=== PATIENT | female | born 1945 | race Caucasian/White ===

== ENCOUNTER → 2019-03-19 | Outpatient (REF) | payer MEDICARE, OTHER ==
[~2019-03-19] MED LIST: ASPI81CH49 PO; AZO PO; BIOT1CAP2 PO; CIPR-249 PO; CRAN250T PO; GARL10004 PO; VITA-122 PO; VITA10006 PO; [UNRECOGNIZED DRUG - REMARK] PO
[2019-03-19 14:27] LABS: APPEARANCE, URINE CLEAR (CLEAR); BACTERIA, URINE AUTO NEGATIVE (NEGATIVE); BILIRUBIN, URINE AUTO NEGATIVE (NEGATIVE); BLOOD, URINE BLOOD NEGATIVE (NEGATIVE); COLOR, URINE YELLOW (YELLOW); GLUCOSE, URINE (UA) AUTO NEGATIVE (NEGATIVE); KETONE, URINE AUTO NEGATIVE (NEGATIVE); LEUKOCYTE ESTERASE, URINE AUTO TRACE (NEGATIVE); NITRITE, URINE AUTO NEGATIVE (NEGATIVE); PROTEIN, URINE AUTO NEGATIVE (NEGATIVE); RBC, URINE AUTO 1 /HPF (0-3); SPECIFIC GRAVITY URINE AUTO 1.016 (1.002-1.035); SQUAMOUS EPITHELIAL CELL UR AU 1 /HPF (0-6); UROBILINOGEN, URINE AUTO 0.2 mg/dL (0.0-2.0); WBC, URINE AUTO 2 /HPF (0-3)
== END ==
LOC: M SMT 13:33
PROVIDERS: ATTEND Nurse Practitioner Women's Health
DX: Z87.440 Personal history of urinary (tract) infections (principal); R32 Unspecified urinary incontinence
CPT/HCPCS: 51798; 81001; 87086; G0463

== ENCOUNTER 2020-03-24 08:37 | Outpatient (CLI) | payer MEDICARE ==
[~2020-03-24] VITALS: Ht 157.5 cm; Wt 77.2 kg
[2020-03-24] MEDS ORDERED: FOLI1TAB11 PO (08:52)
[2020-03-24] MEDS ORDERED: MYRB50TA PO (08:52)
[2020-03-24] MEDS ORDERED: LOSA100T5 PO (08:52)
[2020-03-24] MEDS ORDERED: MELO15TA28 PO (08:52)
[2020-03-24] MEDS ORDERED: PRED10TA2 PO (08:52)
[2020-03-24] MEDS ORDERED: METH2.5T48 PO (08:52)
[2020-03-24] MEDS ORDERED: INDA25TAB PO (08:52)
[2020-03-24] MEDS ORDERED: CITR1CHW PO (08:54)
[2020-03-24] MEDS ORDERED: [UNRECOGNIZED DRUG - CODE] PO (08:54)
[2020-03-24 08:57] VITALS: BP 118/59
[2020-03-24] MEDS ORDERED: ZOLEDRONIC ACID 5 MG in IV 1 EA IV ONE (09:00)
[2020-03-24 09:34] VITALS: BP 118/57
== END 2020-03-24 09:55 | disposition home or self-care (01) ==
LOC: M INFU 08:37
PROVIDERS: ATTEND Internal Medicine Endocrinology, Diabetes & Metabolism
DX: M81.0 Age-related osteoporosis without current pathological fracture (principal)
CPT/HCPCS: 96365; J3489

== ENCOUNTER 2021-02-23 09:33 | Inpatient (IN) | payer MEDICARE ==
[~2021-02-23] VITALS: Ht 154.9 cm; Wt 78.9 kg
[~2021-02-23 09:33] MED LIST changes: +CITR1CHW PO; +FOLI1TAB11 PO; +INDA25TAB PO; +LOSA100T5 PO; +MELO15TA28 PO; +METH2.5T48 PO; +MYRB50TA PO; +PRED10TA2 PO; +[UNRECOGNIZED DRUG - CODE] PO
--- NOTE | 2021-02-23 11:10 | REP ---
INDICATION: r/o right HN/HU COMPARISON: None TECHNIQUE: Real time brower scale ultrasound examination using curved array transducer. FINDINGS: The kidneys are normal in contour, echogenicity, and reniform shape without hydronephrosis, nephrolithiasis, cystic or renal mass lesion. Right kidney measures 8.1 x 5.2 x 5.2 cm. Left kidney measures 12.1 x 5.8 x 6.1 cm. Bladder is unremarkable. IMPRESSION: 1. Asymmetric size with suspected atrophy to the right kidney. 2. No hydroureteronephrosis <Electronically signed by Seamus Haskins > 02/23/21 [id number]
[2021-02-23 11:23] LABS: HEMATOCRIT 36.8 % (36.0-47.0); MEAN CORPUSCULAR HEMOGLOBIN 31.2 pg (27.0-33.0); MEAN CORPUSCULAR HGB CONC 32.6 g/dl (32.0-36.5); MEAN CORPUSCULAR VOLUME 95.6 fl (80.0-96.0); PLATELET COUNT, AUTOMATED 179 10^3/uL (150-450); RED BLOOD COUNT 3.85 10^6/uL (4.00-5.40); WHITE BLOOD COUNT 20.1 10^3/uL (4.0-10.0)
[2021-02-23 11:59] LABS: BASOPHILS 1 % (0-1); LYMPHOCYTES 1 % (16-44); MONOCYTES 4 % (0-5); NEUTROPHILS 75 % (28-66)
[2021-02-23 12:00] LABS: ANISOCYTOSIS 1+; PLATELET ESTIMATE NORMAL (NORMAL)
--- NOTE | 2021-02-23 12:15 | REP ---
INDICATION: pre-op COMPARISON: 11/04/2014 TECHNIQUE: Portable AP view of the chest FINDINGS: The mediastinum and cardiac silhouette are stable and within normal limits for portable technique. The lung summers demonstrate chronic appearing changes without acute focal consolidation, effusion, or pneumothorax. Skeletal structures are intact. IMPRESSION: No acute cardiopulmonary process appreciated. <Electronically signed by Seamus Haskins > 02/23/21 [id number]
[2021-02-23] MEDS ORDERED: D31000TA2 PO (12:26)
[2021-02-23] MEDS ORDERED: ASPI81TA26 PO (12:26)
[2021-02-23] MEDS ORDERED: CAL-TAB4 PO (12:26)
[2021-02-23] MEDS ORDERED: CRAN400C PO (12:26)
[2021-02-23] MEDS ORDERED: ACETAMINOPHEN TAB 650MG DOSE (2X325MG) PO PRN (13:15)
[2021-02-23] MEDS ORDERED: MAALOX 30 ML SUSP *UDC PO PRN (13:15)
[2021-02-23] MEDS ORDERED: MOM 30ML SUSPENSION UDC PO PRN (13:15)
[2021-02-23] MEDS ORDERED: NS 1,000 ML IV SCH (13:15)
[2021-02-23] MEDS ORDERED: predniSONE 20 MG TAB PO PRN (13:15)
[2021-02-23] MEDS ORDERED: cefTRIAXone SOD 1 GM in D5W MINI-BAG PLUS 50 ML IV SCH (14:05)
[2021-02-23] MEDS ORDERED: POTASSIUM CHLORIDE 10 MEQ SR TABLET PO ONE ×3 (14:15→18:00)
--- NOTE | 2021-02-23 15:33 | ECGEPIP ---
[facility] - ED Test Date: 2021-02-23 Pat Name: KUSH SAUER Department: Room: Gender: Female Technical Sales Representatives: CLAUDIO : 1945 Requested By: Yariel Jaimes Order Number: [id number] Reading MD: Alfie Patton Measurements Intervals [place] Rate: 93 P: 61 GA: 162 QRS: 24 QRSD: 88 T: 26 QT: 364 QTc: 452 Interpretive Statements Normal sinus rhythm Comparison tracing not on file Electronically Signed on 02-23-2021 15:32:57 EDT by Alfie Patton
[2021-02-23 15:35] VITALS: BP 104/73
--- NOTE | 2021-02-23 15:40 | HPEPDOC ---
General Date of Admission Feb 23, 2021 at 13:14 Date of Service: Feb 23, 2021 Attending Physician: LEONIDES MCINTOSH MD Chief Complaint On presenting to [facility] ED she did have a white count of 20.1, febrile at Tmax 101.3. The repeat imaging [renal ultrasound] showed no hydroureter nephrosis. History of present illness: The patient is a 75-year-old female with a past medical history of rheumatoid arthritis, history of nephrolithiasis status post stent, hypertension, bladder prolapse who has been transferred from [facility] to [facility] for obstructive pyelonephritis. Patient reports she started having pain with urination at around 6 PM and took ltuk-nhx-humglmd Pyridium which did not give her much of relief. Later in the day at 9:30 PM presented to [facility] ED at 9:30 PM with pain in her right costophrenic angle radiating towards her right inguinal region. He reports to have 9 /10,sharp pain associated with nausea, 2 episodes of vomiting. She was treated with IV fluids, pain medication, antibiotics and got imaging[CT abdomen pelvis] done which showed 4X3X4 MM stone within the distal right ureter with associated moderate to marked right Stow-ureterohydronephrosis and was being transferred to [facility] ED. Past medical history: Rheumatoid arthritis History of nephrolithiasis S/p stent Hypertension Bladder prolapse s/p surgery GERD Past surgical history: Appendectomy 1965 Arthroscopic right knee repair, 2013 Cystoscopy right directed stent placement 2013 Right leg vein surgery 2017 Right wrist carpal tunnel surgery 2018 Cystoscopy 2019. Social history: She is a former smoker and smoked less than one pack per day for 20 years, quit in 1997. Denies any alcohol use. Denies any illicit drug use Family History: Father: at 70 years of age had a stroke at age 65. Mother: 98 years old due to old age. Siblings: Brother due to colon cancer. Sister due to bladder cancer and heart disease REVIEW OF SYSTEMS: Constitutional: Denies having fever, chills, night sweats, weight loss, headaches. Eyes: Denies any blurry vision or double vision. ENT: Denies any dysphagia, odynophagia, ear discharge. Cardiovascular: Denies any chest pain or palpitations. Respiratory: Denies shortness of breath and cough. Gastrointestinal (GI): Denies any nausea or vomiting. Genitourinary: Reports her pain has improved, right now she is not in any pain. Musculoskeletal: Denies any muscle aches and pains. Skin: Denies any rashes or ulcers. Hematology/Oncology: Denies any easy bleeding or bruising. Endocrine: Denies cold intolerance, heat intolerance, polydipsia, polyphagia, p olyuria All other review of systems is negative. PHYSICAL EXAMINATION: General: Patient is awake, alert, oriented times three, laying in bed , no apparent distress. Eyes: Conjunctiva clear, pupils equal round and reactive to light and accommodation. Fundus: not visualized. ENT: Hearing Bilateral normal. No nasal deviation, oropharynx clear with no lesions/erythema. Neck: supple, no masses, trachea midline, no thyroid nodules, masses, tenderness or enlargement. Cardiovascular: S1, S2, normal rhythm, appreciated systolic murmur 2/6, patient doesn't know about the murmur but the daughter who is present in the room states that she was worked up for the murmur; no JVD, no carotid bruits. Respiratory: Chest is clear to auscultation bilaterally, No rhonchi, wheezes or rubs. Abdomen: Soft, bowel sounds positive, no bruits. Mild tenderness to palpation in the right lower quadrant and above the inguinal ligament rest of the abdomen no tenderness on palpation. Extremities: No clubbing or cyanosis. No edema, no tenderness. Spine: No kyphosis, no paraspinal tenderness, no costovertebral tenderness. Central nervous system (TRANSPLANT WORKER): Awake, alert and fully oriented. No focal deficits Imaging : Renal ultrasound, on 02/23/2021: Reported as asymmetric size with suspected atrophia of the right kidney. No hydroureter nephrosis. Chest x-ray, on 02/23/2021: Reported as no acute cardiopulmonary processes appreciated. Assessment: 75-year-old female with PMH of rheumatoid arthritis on methotrexate, history of nephrolithiasis S/P stent, HTN, bladder prolapse was transferred to [facility] from [facility] due to obstructive pyelonephritis. On transfer to [facility] it appears that patient passed this stone as the imaging showed no stone. But she does have leukocytosis with WBC 20.3, Tmax of 101.3, she is being admitted by medical team for her pyelonephritis. Plan: #Pyelonephritis 2/2 prior obstructing stone: - Imaging done in [facility] ED showed that there is no stone, given patient's improvement in symptoms/relief from pain likely suggest that the stone has passed. - Given her white count of 20.3 we will start her on IV antibiotics Rocephin 1 g every 24 hours. - Urine culture was sent, pending results. - Will continue IV hydration at maintenance rate 100mls/hr. - Urology was consulted in the from the ED prior to her passing the stone. As she passed the stone she wouldn't need any urgent procedure at this point of time. #Leukocytosis: - Likely from her pyelonephritis. - Will that her on Rocephin 1 g/24 h [she did get a dose of Rocephin on 02/24/2020 at 2 AM at [facility]] - IV hydration at maintenance rate. #Hypotension: - Patient's blood pressures is in upper 80s and 90s of SBP, likely from her dehydration and nothing by mouth. - Patient had couple of vomiting and was nothing by mouth since midnight.[She was NPO thinking she might need surgery given that she passed the stone she does not need any surgery/procedure] - Start her on IV fluids maintenance rate 100mls/hr. Hypokalemia: - Patient has a potassium of 2.9 on the POC labs in the ED. - Will give her by mouth potassium 60 mg. - Will check her potassium tomorrow morning. # Hypertension: - Patient is on indapamide 2.5 mg by mouth at home will continue her home medication. - Hold the medication if SBP less than 100. # Rheumatoid arthritis: - Patient is on methotrexate 2.5 mg, 6 pills once a week. She generally takes them on . - Will continue patient's prednisone 20 mg when necessary for flareup. #DVT prophylaxis: - Lovenox 40 MG subcutaneous. Disposition: - Based on her improvement in leukocytosis and vitals, she can be switched to by mouth medications and be discharged tomorrow. Home Medications Scheduled Aspirin (Aspirin EC) 81 Mg Tablet.dr, 81 MG PO DAILY, (Reported) Calcium Citrate/Vitamin D2 (Jose A-Citrate Plus Vitamin D Tab) 1 Each Tablet, 1 TAB PO DAILY, (Reported) Cholecalciferol (Vitamin D3) (Vitamin D3) 1,000 Unit Tablet, 1,000 UNITS PO DAILY, (Reported) Cranberry (Cranberry) 400 Mg Capsule, 400 MG PO DAILY, (Reported) Folic Acid (Folic Acid) 1 Mg Tablet, 1 MG PO DAILY, (Reported) Indapamide (Indapamide) 2.5 Mg Tablet, 2.5 MG PO DAILY, (Reported) Methotrexate Sodium (Methotrexate) 2.5 Mg Tablet, 15 MG PO QWEEK, (Reported) Scheduled PRN Meloxicam (Meloxicam) 15 Mg Tablet, 7.5 MG PO DAILY PRN for PAIN, (Reported) Prednisone (Prednisone) 10 Mg Tablet, 20 MG PO DAILY PRN for flare up, (Reported) Allergies Coded Allergies: No Known Allergies (Unverified , 10/26/14) GME ATTESTATION My faculty preceptor for this patient encounter was physically present during the encounter and was fully available. All aspects of the patient interview, examination, medical decision making process, and medical care plan development were reviewed and approved by the faculty preceptor. The faculty preceptor is aware and concurs with the plan as stated in the body of this note and will attest to such by his/her cosignature. ATTENDING NOTE I personally examined the patient and obtained the history leading up to presentation. As stated by the resident physician Ms. Rodríguez is a 75 yo W with a history of RA, HTN and a history of nephrolithiasis who presented from [place] ED to [facility] ED for obstructive pyelonephritis with sepsis, but by the time she arrived here we suspect that she passed her stone with resolution of pain and resolution of hydronephrosis on recent renal US, and we are now admitting her for urosepsis with cystitis and sepsis i/s/o soft recent fever, leukocytosis and soft BPs. She has a history of MSSA UTIs in the distant past. We will plan to continue on with ceftriaxone as recently given at [place] and will likely be switched to Keflex to complete a course at discharge home. Of note, urology had been consulted by the ED and had planned for potential stent placement but with resolution of the hydro and pain unlikely that she will need the intervention. A-FIB/CHADSVASC A-FIB History Current/History of A-Fib/PAF?: No Current PO Anticoag Therapy: Yes Vital Signs Vital Signs Date Time Temp Pulse Resp B/P (MAP) Pulse Ox O2 Delivery O2 Flow Rate FiO2 02/23/21 09:47 98.1 103 20 99/55 (70) 99 Laboratory Data Labs 24H Laboratory Tests 2 02/23/21 11:14: Neutrophils (%) (Auto) , Nucleated Red Blood Cells % (auto) 0.0, Neutrophils 75H, Band Neutrophils 19H, Lymphocytes (Manual) 1L, Monocytes (Manual) 4, Basophils (Manual) 1, Anisocytosis 1+, Platelet Estimate NORMAL 02/23/21 11:15: Urine Color REDH, Urine Appearance CLOUDYH, Urine pH 5.0, Urine Specific [place] 1.017, Urine Protein 2+H, Urine Glucose (UA) NEGATIVE, Urine Ketones NEGATIVE, Urine Blood 3+H, Urine Nitrite POSITIVEH, Urine Bilirubin NEGATIVE, Urine Urobilinogen 4.0H, Urine Leukocyte Esterase 1+H, Urine WBC (Auto) TNTCH, Urine RBC (Auto) TNTCH, Urine Hyaline Casts (Auto) 0, Urine Bacteria (Auto) 3+H, Urine Squamous Epithelial Cells 0, Urine Mucus (Auto) LARGE, Urine Sperm (Auto) 02/23/21 11:18: POC Glucose (Misc Panel) 108H, POC Sodium (Misc Panel) 139, POC Potassium (Misc Panel) 2.9*L, POC Chloride (Misc Panel) 99, POC Total CO2 (Misc Panel) 29.0H, POC Blood Urea Nitrogen (Misc Panel 22, POC Ionized Calcium (Misc Panel) 4.7, POC Creatinine (Misc Panel) 0.6, POC Hematocrit (Misc Panel) 35.0L CBC/BMP Laboratory Tests 02/23/21 11:14 Microbiology Microbiology 02/23/21 Respiratory Virus Panel (PCR) (ZEFERINO) - Final, Complete 02/23/21 Urine Culture, Received Pending Plan / VTE VTE Prophylaxis Ordered?: Yes Blaine Carlos MD Feb 23, 2021 15:39 LEONIDES MCINTOSH MD Feb 23, 2021 16:10
[2021-02-23] MEDS: INDAPAMIDE 1.25MG TABLET PO SCH (15:46)
[2021-02-23] MEDS: DOCUSATE SODIUM 100MG CAPSULE PO SCH ×2 (16:24→20:24)
--- NOTE | 2021-02-23 16:35 | SMCUROLCON ---
Urology Consultation General Date of Consultation 02/23/21 Reason For Consultation This patient is seen for Obstructive Pyelonephritis. History of Present Illness The patient is a 75-year-old female with a past medical history for nephrolithiasis with previous interventional surgery. She states that she was in her usual state of health until yesterday when she began having some vague symptoms that she thought was a urinary tract infection. Several hours later this became pain in her right flank and right lower quadrant and she presented to the emergency room at [facility] when she was diagnosed with a distal right ureteral tumor millimeter calculus with hydronephrosis, elevated white cell count and low-grade temperature. She was transferred to [facility] when she failed to pass the stone after 2 L of hydration. She also had a positive urinary tract infection. In the emergency room, her white cell count was 20 a renal ultrasound failed to show any hydronephrosis. Because of her medical condition, urinary tract infection, obstructing stone and advanced age, she was admitted to the hospital and will need stone extraction or at least stent insertion later today. Past Medical History Medical History Rheumatoid arthritis, hypertension Surgical Hstory Breast biopsy, appendectomy, right knee arthroscopy, right carpal tunnel repair, previous ureteroscopic stone extraction Social History * Smoker: non-smoker Medications Current Medications Current Medications Medications (Trade) Dose Ordered Sig/Alfredo Route PRN Reason Start Time Stop Time Status Last Admin Dose Admin Acetaminophen (Tylenol Tab) 650 mg Q4H PRN PO PAIN OR FEVER 02/23/21 13:15 Al Hydrox/Mg Hydrox/Simethicone (Mylanta) 30 ml DAILY PRN PO DYSPEPSIA 02/23/21 13:15 Aspirin (Ecotrin) 81 mg DAILY PO 02/23/21 09:00 Ceftriaxone Sodium 1 gm/ Dextrose 50 ml @ 100 mls/hr Q12H IV 02/23/21 14:05 UNV Ceftriaxone Sodium (Rocephin) 1 gm Q24H IV 02/24/21 02:00 Docusate Sodium (Colace) 100 mg BID PO 02/23/21 09:00 Enoxaparin Sodium (Lovenox) 40 mg DAILY SC 02/23/21 09:00 Folic Acid (Folic Acid) 1 mg DAILY PO 02/23/21 09:00 Home Med (Med Rec Complete!) ASDIRECTED XX 02/23/21 12:30 02/23/21 12:34 DC Indapamide (Lozol) 2.5 mg DAILY PO 02/23/21 09:00 Magnesium Hydroxide (Milk Of Magnesia) 30 ml DAILY PRN PO CONSTIPATION 02/23/21 13:15 Prednisone (Deltasone) 20 mg DAILY PRN PO flare up 02/23/21 13:15 Sodium Chloride 1,000 ml @ 100 mls/hr Q10H IV 02/23/21 13:15 02/23/21 23:14 02/23/21 15:59 Vitamin D (Vitamin D) 1,000 units DAILY PO 02/23/21 09:00 Allergies Allergies: Coded Allergies: No Known Allergies (Unverified , 10/26/14) Review of Systems General: Reports: Normal Appetite; Denies: Fatigue, Malaise Constitutional: Denies: Fever, Chills, Sweats, Weakness, Malaise Eyes: Denies: Pain, Vision change ENT: Denies: Head Aches, Sore Throat, Epistaxis Skin: Denies: Rash, Lesions, Breakdown, Nail Changes Pulmonary: Denies: Dyspnea, Cough Cardiovascular: Denies Chest Pain, Denies Palpitations Gastrointestinal: Denies: Nausea, Vomiting, Abdominal Pain Genitourinary: Reports: Frequency; Denies: Dysuria, Incontinence, Hematuria Hematologic: Denies: Bruising, Bleeding Excessively Endocrine: Denies: Polydipsia, Polyphagia, Polyuria Musculoskeletal: Denies: Neck Pain, Back Pain Neurological: Denies: Weakness, Numbness, Incoordination, Change in Speech Psych: Reports: Mood Normal; Denies: Anxiety, Depression Physical Examination General Exam: Alert, No Acute Distress EYE EXAM: No: PERRLA, Conjunctiva & lids normal, EOMI, Sclera icteric, Ptosis, Other Eye Symptoms ENT EXAM: Atraumatic, Mucous membr. moist/pink, Pharynx Normal Neck Exam: Supple; No: JVD, thyromegaly Chest Exam: Clear to auscultation, Normal air movement Heart Exam: Rate Normal, Regular Rhythm, Normal S1, Normal S2; No: Murmurs, Rubs Abdomen Exam: Normal Bowel Sounds, Soft; No: Tenderness, Hepatospenomegaly Skin Exam: Nl turgor and temperature; No: Rash, Breakdown Neuro Exam: Normal Gait, Normal Speech, Cranial Nerves 3-12 NL, Reflexes 2+ Psych Exam: Mental status NL, Mood NL, Oriented x 3 Vital Signs/I&O Vital Signs Date Time Temp Pulse Resp B/P (MAP) Pulse Ox O2 Delivery O2 Flow Rate FiO2 02/23/21 15:35 98.4 90 14 104/73 (83) 96 Room Air Laboratory Data 24H Labs Laboratory Tests 2 02/23/21 11:14: Neutrophils (%) (Auto) , Nucleated Red Blood Cells % (auto) 0.0, Neutrophils 75H, Band Neutrophils 19H, Lymphocytes (Manual) 1L, Monocytes (Manual) 4, Basophils (Manual) 1, Anisocytosis 1+, Platelet Estimate NORMAL 02/23/21 11:15: Urine Color REDH, Urine Appearance CLOUDYH, Urine pH 5.0, Urine Specific [place] 1.017, Urine Protein 2+H, Urine Glucose (UA) NEGATIVE, Urine Ketones NEGATIVE, Urine Blood 3+H, Urine Nitrite POSITIVEH, Urine Bilirubin NEGATIVE, Urine Urobilinogen 4.0H, Urine Leukocyte Esterase 1+H, Urine WBC (Auto) TNTCH, Urine RBC (Auto) TNTCH, Urine Hyaline Casts (Auto) 0, Urine Bacteria (Auto) 3+H, Urine Squamous Epithelial Cells 0, Urine Mucus (Auto) LARGE, Urine Sperm (Auto) 02/23/21 11:18: POC Glucose (Misc Panel) 108H, POC Sodium (Misc Panel) 139, POC Potassium (Misc Panel) 2.9*L, POC Chloride (Misc Panel) 99, POC Total CO2 (Misc Panel) 29.0H, POC Blood Urea Nitrogen (Misc Panel 22, POC Ionized Calcium (Misc Panel) 4.7, POC Creatinine (Misc Panel) 0.6, POC Hematocrit (Misc Panel) 35.0L CBC/BMP Laboratory Tests 02/23/21 11:14 Microbiology Microbiology 02/23/21 Respiratory Virus Panel (PCR) (ZEFERINO) - Final, Complete 02/23/21 Urine Culture, Received Pending Assessment Distal right ureteral calculus Plan Because of the patient's elevated white cell count and obstructing stone, she will be taken to the operating room today for a stone extraction and stent insertion. Time Spent on Consult: Time Spent / Consult (Minutes): 78 KEENAN ANDERSON MD Feb 23, 2021 16:35
[2021-02-23 18:00] VITALS: BP 117/53
[2021-02-23] MEDS: ASPIRIN 81MG ENTERIC TABLET PO SCH (18:31)
[2021-02-23] MEDS: ENOXAPARIN 40MG/0.4ML SYRINGE (J1650 PER 10MG) SC SCH (18:32)
[2021-02-23] MEDS: VITAMIN D 1,000 INTERNATIONAL UNITS TABLET PO SCH (18:32)
[2021-02-23] MEDS: FOLIC ACID 1 MG TAB PO SCH (18:32)
[2021-02-23] MEDS ORDERED: ONDANSETRON 4MG/2ML VIAL IV PRN (20:25)
[2021-02-23] MEDS ORDERED: ONDANSETRON 4MG/2ML VIAL IV SCH (21:00)
[2021-02-23 22:00] VITALS: BP 116/54
[2021-02-24 02:00] VITALS: BP 119/59
[2021-02-24] MEDS ORDERED: cefTRIAXone SOD 1GM VIAL (J0696 PER 250MG) IV SCH (02:00)
[2021-02-24] MEDS: cefTRIAXone SOD 1 GM in D5W MINI-BAG PLUS 50 ML IV SCH (02:19)
[2021-02-24 05:59] LABS: BASO # 0.1 10^3/uL (0.0-0.2); BASO % 0.3 % (0.0-1.0); EOS # 0.1 10^3/uL (0.0-0.5); EOS % 0.5 % (0.0-3.0); HEMATOCRIT 36.2 % (36.0-47.0); HEMOGLOBIN 11.8 g/dl (12.0-15.5); LYMPH # 0.9 10^3/uL (1.5-5.0); LYMPH % 4.4 % (24.0-44.0); MEAN CORPUSCULAR HEMOGLOBIN 31.5 pg (27.0-33.0); MEAN CORPUSCULAR HGB CONC 32.6 g/dl (32.0-36.5); MEAN CORPUSCULAR VOLUME 96.5 fl (80.0-96.0); MONO # 1.3 10^3/uL (0.0-0.8); MONO % 6.4 % (2.0-8.0); NEUTROPHILS # 17.4 10^3/uL (1.5-8.5); NEUTROPHILS % 86.8 % (36.0-66.0); PLATELET COUNT, AUTOMATED 177 10^3/uL (150-450); RED BLOOD COUNT 3.75 10^6/uL (4.00-5.40); WHITE BLOOD COUNT 20.1 10^3/uL (4.0-10.0)
[2021-02-24 06:00] VITALS: BP 116/55
[2021-02-24 06:29] LABS: BLOOD UREA NITROGEN 18 MG/DL (7-18); CALCIUM LEVEL 8.3 MG/DL (8.8-10.2); CARBON DIOXIDE LEVEL 31 MEQ/L (21-32); CHLORIDE LEVEL 108 MEQ/L (98-107); CREATININE FOR GFR 0.33 MG/DL (0.55-1.30); GLOMERULAR FILTRATION RATE > 60.0 (>39); GLUCOSE, FASTING 99 MG/DL (70-100); POTASSIUM SERUM 3.4 MEQ/L (3.5-5.1); SODIUM LEVEL 141 MEQ/L (136-145)
[2021-02-24] MEDS ORDERED: POTASSIUM CHLORIDE 10 MEQ SR TABLET PO ONE (08:35)
[2021-02-24] MEDS ORDERED: CALCIUM CARBONATE 500 MG CHEW U/D PO PRN (09:00)
[2021-02-24] MEDS ORDERED: PANTOPRAZOLE 20 MG TAB PO ONE (09:45)
--- NOTE | 2021-02-24 09:52 | REP ---
INDICATION: Pyelonephritis. COMPARISON: None TECHNIQUE: Noncontrast enhanced helical technique FINDINGS: Patchy opacities are seen in the lung bases. There are no pleural or pericardial effusions. There is cholelithiasis. There is right-sided hydronephrosis and hydroureter with perinephric and periureteral stranding. There are bilateral nephroliths. There is no evidence of a ureterolith on either side. There are no urinary bladder calcifications. There are bilateral pelvic phleboliths. There is no free fluid or free air. Limited evaluation of the bowel loops and the mesenteries show no gross abnormalities. There is sigmoid colon diverticulosis. Limited evaluation of the pancreas and adrenal glands show no gross abnormalities. The liver and spleen are within normal limits. Limited evaluation of the abdominal aorta and para aortic regions show no gross abnormalities. There is a small hiatal hernia. Chronic changes are seen involving the imaged spine. There is bilateral L5 spondylolysis and grade 1/2 L5 upon S1 spondylolisthesis. IMPRESSION: 1. Right renal and renal collecting system changes as described above. The findings could be secondary to a past calculus. Without the administration of intravenous contrast it is uncertain whether not at least some of the findings are secondary to acute pyelonephritis. A contrast-enhanced examination would be necessary to make that determination at this time. 2. Cholelithiasis. 3. Bilateral lung base subsegmental atelectasis. 4. Bilateral nonobstructing nephroliths. 5. Small hiatal hernia. 6. Chronic osseous changes as described above. 7. Other findings as described above. <Electronically signed by Adolfo Tovar > 02/24/21 [id number]
[2021-02-24 10:00] VITALS: BP 117/57
[2021-02-24] MEDS: INDAPAMIDE 1.25MG TABLET PO SCH (10:08)
[2021-02-24] MEDS: FOLIC ACID 1 MG TAB PO SCH (10:08)
[2021-02-24] MEDS: ENOXAPARIN 40MG/0.4ML SYRINGE (J1650 PER 10MG) SC SCH (10:08)
[2021-02-24] MEDS: VITAMIN D 1,000 INTERNATIONAL UNITS TABLET PO SCH (10:08)
[2021-02-24] MEDS: DOCUSATE SODIUM 100MG CAPSULE PO SCH ×2 (10:09→20:20)
[2021-02-24] MEDS: ASPIRIN 81MG ENTERIC TABLET PO SCH (10:09)
[2021-02-24 14:00] VITALS: BP 118/59
[2021-02-24 18:00] VITALS: BP 127/64
--- NOTE | 2021-02-24 18:26 | IPNPDOC ---
Subjective Review oF Systems Chief Complaint The patient is a 76-year-old female admitted with a reason for visit of Obstructive Pyelonephritis. General: Reports: Normal Appetite; Denies: Fatigue, Malaise Constitutional: Reports: Malaise; Denies: Fever, Chills, Sweats, Weakness Eyes: Denies: Pain, Vision change ENT: Denies: Head Aches, Sore Throat, Epistaxis Skin: Denies: Rash, Lesions, Breakdown, Nail Changes Pulmonary: Denies: Dyspnea, Cough Cardiovascular: Denies Chest Pain, Denies Palpitations Gastrointestinal: Reports: Vomiting Genitourinary: Denies: Dysuria, Frequency, Incontinence, Hematuria Hematologic: Denies: Bruising, Bleeding Excessively Endocrine: Denies: Polydipsia, Polyphagia, Polyuria Musculoskeletal: Denies: Neck Pain, Back Pain Neurological: Denies: Weakness, Numbness, Incoordination, Change in Speech Psych: Reports: Mood Normal; Denies: Anxiety, Depression Objective Physical Examination General Exam: Alert, No Acute Distress Eye Exam: PERRLA, Conjunctiva & lids normal, EOMI; No: Sclera icteric ENT EXAM: Atraumatic, Mucous membr. moist/pink, Pharynx Normal Neck Exam: Supple; No: JVD, thyromegaly Chest Exam: Clear to auscultation, Normal air movement ABDOMEN EXAM: Other (abdomen is rounded, soft. She has some very mild right sided CVA tenderness) Vital Signs/I&O Vital Signs Date Time Temp Pulse Resp B/P (MAP) Pulse Ox O2 Delivery O2 Flow Rate FiO2 02/24/21 14:00 98.9 91 16 118/59 (78) 94 Room Air I&O- Last 24 Hours up to 6 AM 02/24/21 06:00 Intake Total 1370 ml Output Total 525 ml Balance 845 ml Laboratory Data Labs 24H Laboratory Tests 2 02/24/21 05:23: Immature Granulocyte % (Auto) 1.6, Neutrophils (%) (Auto) 86.8H, Lymphocytes (%) (Auto) 4.4L, Monocytes (%) (Auto) 6.4, Eosinophils (%) (Auto) 0.5, Basophils (%) (Auto) 0.3, Neutrophils # (Auto) 17.4H, Lymphocytes # (Auto) 0.9L, Monocytes # (Auto) 1.3H, Eosinophils # (Auto) 0.1, Basophils # (Auto) 0.1, Nucleated Red Blood Cells % (auto) 0.0, Anion Gap 2L, Glomerular Filtration Rate > 60.0, Calcium Level 8.3L, C-Reactive Protein, Quantitative 14.90H CBC/BMP Laboratory Tests 02/24/21 05:23 Microbiology Microbiology 02/23/21 Respiratory Virus Panel (PCR) (ZEFERINO) - Final, Complete 02/23/21 Urine Culture, Received Pending Assessment/Plan Date Seen The patient was seen on 02/24/21. Plan/VTE VTE Prophylaxis Ordered?: Yes Plan Patient continues to have some malaise and mild right CVA tenderness. The white cell count is still elevated at 20 and her C-reactive proteins are still high but she is afebrile. She denies any appetite. She still has some mild right sided CVA tenderness. Her repeat CT scan shows that she still has some hydronephrosis down to the distal portion of the middle third of the ureter. While this could be resultant from the patient's recently passed stone, I would not expect her to continue to have the hydronephrosis and her white cell count should be improving. If this has not improved by tomorrow, the patient may benefit from a cystoscopy retrograde pyelogram and stent insertion to see if she has any other reason for right ureteral obstruction. I explained this to the patient and her daughter and she has agreed to the procedure. KEENAN ANDERSON MD Feb 24, 2021 18:26
--- NOTE | 2021-02-24 18:49 | IPNPDOC ---
Text Note Date of Service The patient was seen on 02/24/21. NOTE Subjective: Patient seen and examined at bedside. He reports the pain has been completely resolved, she reports to have one episode of vomiting yesterday night,the vomitus was only the food contents she ate earlier no blood in it. Reports to be having some burning sensation in her chest following the vomiting. She did not have any vomiting in the a.m. today, reports to be peeing clear urine with no blood in it. Denies having any fever, chills, abdominal pain, constipation, diarrhea. Objective: Physical exam: General appearance: Alert and oriented 3, no acute distress. HEENT: Neck supple, oral mucosa moist, no redness in the posterior throat. Cardiac: Regular rate and rhythm, S1-S2 normal, no murmurs appreciated Respiratory: Clear breath sounds bilaterally lungs, no wheezes no rhonchi appreciated Abdomen: Soft, positive bowel sounds, no tenderness on palpation and all the 4 quadrants. She reports her tenderness in the right lower quadrant has improved. Extremities: No pedal edema noted. Imaging : Renal ultrasound, on 02/23/2021: Reported as asymmetric size with suspected atrophia of the right kidney. No hydroureter nephrosis. Chest x-ray, on 02/23/2021: Reported as no acute cardiopulmonary processes appreciated. CT abdomen and pelvis without contrast: Done on 02/24/2021: There is right-sided hydronephrosis and hydroureter with perinephric and periureteral stranding. There are bilateral nephroliths. There is no evidence of a ureterolith on either side. There are no urinary bladder calcifications. There are bilateral pelvic phleboliths. The findings could be secondary to past calculus. Assessment: 75-year-old female with PMH of rheumatoid arthritis on methotrexate, history of nephrolithiasis S/P stent, HTN, bladder prolapse was transferred to [facility] from [facility] due to obstructive pyelonephritis. On transfer to [facility] it appears that patient passed this stone as the imaging showed no stone. But she does have leukocytosis with WBC 20.3, Tmax of 101.3, she is being admitted by medical team for her pyelonephritis. Plan: #Pyelonephritis 2/2 prior obstructing stone: -Patient's white count was 20.1 unchanged from yesterday, we did get a CRP to see if it is trending down and found out that the CRP was trending up instead. - Will continue patient on IV antibiotics Rocephin 1 g every 24 hours. - Dr. Gomez was contacted regarding the same and recommended CT of abdomen and pelvis without contrast, the images were reviewed by him and decided that patient does have a mild hydronephrosis without stone visible. He reports he would take her to surgery tomorrow afternoon to point a stent to help relieve the pressure and thinks that would be helpful to her. - She wasn't taken to surgery today she had her lunch, wouldn't clear by anesthesia for surgery. - To keep her nothing by mouth from midnight as she would be going for surgery tomorrow. - Will start her on maintenance rate of fluid from midnight. - Urine cultures are still pending. #Leukocytosis: - Likely from her pyelonephritis. - Will that her on Rocephin 1 g/24 h [she did get a dose of Rocephin on 02/24/2020 at 2 AM at [facility]] - Patient's WBC is 20.1 even today. #Hypotension: - Patient's blood pressures is in upper 80s and 90s of SBP, likely from her dehydration and nothing by mouth. - Patient's hypotension has resolved and his blood pressure is back to normal. Hypokalemia: -Patient repeat potassium today was 3.4 - He was given by mouth potassium # Hypertension: - Patient is on indapamide 2.5 mg by mouth at home will continue her home medication. - Hold the medication if SBP less than 100. # Rheumatoid arthritis: - Patient is on methotrexate 2.5 mg, 6 pills once a week. She generally takes them on . - Will continue patient's prednisone 20 mg when necessary for flareup. #DVT prophylaxis: - Lovenox 40 MG subcutaneous. Disposition: Patient will be taken to surgery tomorrow by Dr. Gomez. Williams PERRY, I+O Williams PERRY, I+O Laboratory Tests 02/24/21 05:23 Vital Signs Date Time Temp Pulse Resp B/P (MAP) Pulse Ox O2 Delivery O2 Flow Rate FiO2 02/24/21 14:00 98.9 91 16 118/59 (78) 94 Room Air I&O- Last 24 Hours up to 6 AM 02/24/21 06:00 Intake Total 1370 ml Output Total 525 ml Balance 845 ml GME ATTESTATION GME ATTESTATION My faculty preceptor for this patient encounter was physically present during the encounter and was fully available. All aspects of the patient interview, e xamination, medical decision making process, and medical care plan development were reviewed and approved by the faculty preceptor. The faculty preceptor is aware and concurs with the plan as stated in the body of this note and will attest to such by his/her cosignature. ATTENDING NOTE I, Santhosh Nichols, have independently examined this patient and performed my own physical exam, as well as reviewed the documentation and edited where necessary. I have discussed in detail with the resident / student the findings and plan of treatment as documented by the resident / student and edited their note. I agree with their findings and treatment plan and have edited their documentation. I will continue to follow the patient during this hospital stay. Blaine Carlos MD Feb 24, 2021 18:49 SANTHOSH NICHOLS MD Feb 25, 2021 07:02
[2021-02-24 22:00] VITALS: BP 127/64
[2021-02-25] MEDS: NS 1,000 ML IV SCH ×2 (01:01→09:50)
[2021-02-25] MEDS: cefTRIAXone SOD 1 GM in D5W MINI-BAG PLUS 50 ML IV SCH (01:02)
[2021-02-25 02:00] VITALS: BP 124/63
[2021-02-25 06:00] VITALS: BP 110/57
[2021-02-25 06:18] LABS: BASO # 0.1 10^3/uL (0.0-0.2); BASO % 0.5 % (0.0-1.0); EOS # 0.3 10^3/uL (0.0-0.5); EOS % 2.5 % (0.0-3.0); HEMATOCRIT 36.6 % (36.0-47.0); HEMOGLOBIN 11.9 g/dl (12.0-15.5); LYMPH # 1.3 10^3/uL (1.5-5.0); MEAN CORPUSCULAR HEMOGLOBIN 31.2 pg (27.0-33.0); MEAN CORPUSCULAR HGB CONC 32.5 g/dl (32.0-36.5); MEAN CORPUSCULAR VOLUME 96.1 fl (80.0-96.0); MONO % 9.3 % (2.0-8.0); NEUTROPHILS # 7.6 10^3/uL (1.5-8.5); NEUTROPHILS % 74.1 % (36.0-66.0); PLATELET COUNT, AUTOMATED 181 10^3/uL (150-450); RED BLOOD COUNT 3.81 10^6/uL (4.00-5.40); WHITE BLOOD COUNT 10.2 10^3/uL (4.0-10.0)
[2021-02-25 06:45] LABS: BLOOD UREA NITROGEN 9 MG/DL (7-18); CALCIUM LEVEL 8.4 MG/DL (8.8-10.2); CARBON DIOXIDE LEVEL 31 MEQ/L (21-32); CHLORIDE LEVEL 106 MEQ/L (98-107); CREATININE FOR GFR 0.37 MG/DL (0.55-1.30); GLOMERULAR FILTRATION RATE > 60.0 (>39); GLUCOSE, FASTING 79 MG/DL (70-100); POTASSIUM SERUM 3.7 MEQ/L (3.5-5.1); SODIUM LEVEL 142 MEQ/L (136-145)
[2021-02-25] MEDS: ASPIRIN 81MG ENTERIC TABLET PO SCH (09:00)
[2021-02-25] MEDS: ENOXAPARIN 40MG/0.4ML SYRINGE (J1650 PER 10MG) SC SCH (09:00)
[2021-02-25 09:01] LABS: C REACTIVE PROTEIN QUANTITATIV 9.81 MG/DL (0.00-0.30)
[2021-02-25] MEDS: INDAPAMIDE 1.25MG TABLET PO SCH (09:52)
[2021-02-25] MEDS: DOCUSATE SODIUM 100MG CAPSULE PO SCH (09:53)
[2021-02-25] MEDS: FOLIC ACID 1 MG TAB PO SCH (09:53)
[2021-02-25] MEDS: VITAMIN D 1,000 INTERNATIONAL UNITS TABLET PO SCH (09:53)
[2021-02-25 10:00] VITALS: BP 148/70
[2021-02-25] MEDS ORDERED: LEVO500T3 PO (10:02)
[2021-02-25] MEDS ORDERED: OMEP40CA97 PO (10:03)
[2021-02-25] MEDS ORDERED: BACT800T5 PO (12:08)
--- NOTE | 2021-02-25 18:37 | DS.PDOC ---
Discharge Summary General Date of Admission Feb 23, 2021 at 13:14 Date of Discharge February 23/2021 Attending Physician: SANTHOSH LORENZO MD Discharge Summary PROCEDURES PERFORMED DURING STAY: None. ADMITTING DIAGNOSES: Obstructive hydronephrosis/pyelonephritis Rheumatoid arthritis History of nephrolithiasis S/p stent Hypertension Bladder prolapse s/p surgery GERD DISCHARGE DIAGNOSES: Rheumatoid arthritis History of nephrolithiasis S/p stent Hypertension Bladder prolapse s/p surgery GERD COMPLICATIONS/CHIEF COMPLAINT: Obstructive Pyelonephritis. HISTORY OF PRESENT ILLNESS: 75-year-old female with PMH of rheumatoid arthritis on methotrexate, history of nephrolithiasis S/P stent, HTN, bladder prolapse was transferred to [facility] from [facility] due to obstructive pyelonephritis. On transfer to [facility] it appears that patient passed this stone as the imaging showed no stone. But she does have leukocytosis with WBC 20.3, Tmax of 101.3, she is being admitted by medical team for her pyelonephritis. HOSPITAL COURSE: During the hospital course initially even though her imaging shows that the stone was passed her white count and CRP were elevated for 24 hours that was the reason she was kept in hospital for an extra day and given IV antibiotics and a repeat CT showed no stone but given her white count and CRP being elevated she was scheduled for surgery by Dr. Gomez for stent placement following day. The following day her labs improved and her white count decreased and her CRP was decreased and the procedure was canceled. Patient will be discharged home with outpatient follow up with urology and repeat imaging as required. She will be discharged home with antibiotic coverage based on the susceptibilities from the urine culture. DISCHARGE MEDICATIONS: Please see below. ALLERGIES: Please see below. PHYSICAL EXAMINATION ON DISCHARGE: VITAL SIGNS: Please see below. General appearance: Alert and oriented 3, no acute distress. HEENT: Neck supple, oral mucosa moist, no redness in the posterior throat. Cardiac: Regular rate and rhythm, S1-S2 normal, no murmurs appreciated Respiratory: Clear breath sounds bilaterally lungs, no wheezes no rhonchi appreciated Abdomen: Soft, positive bowel sounds, no tenderness on palpation and all the 4 quadrants. She reports her tenderness in the right lower quadrant has improved. Extremities: No pedal edema noted. LABORATORY DATA: Please see below. IMAGING: Renal ultrasound, on 02/23/2021: Reported as asymmetric size with suspected atrophia of the right kidney. No hydroureter nephrosis. Chest x-ray, on 02/23/2021: Reported as no acute cardiopulmonary processes appreciated. CT abdomen and pelvis without contrast: Done on 02/24/2021: There is right-sided hydronephrosis and hydroureter with perinephric and periureteral stranding. There are bilateral nephroliths. There is no evidence of a ureterolith on either side. There are no urinary bladder calcifications. There are bilateral pelvic phleboliths. The findings could be secondary to past calculus. PROGNOSIS: Good ACTIVITY: As tolerated. DIET: Low-sodium diet DISCHARGE PLAN: DISPOSITION: 01 Home, Self-Care. DISCHARGE INSTRUCTIONS: 1. To follow with PCP in one week. 2. Get a CT scan outpatient in one week to look for resolution of perinephric stranding and pyelonephritis. 3. Continue taking Bactrim DS tablet twice a day for 7 days 4. Return to the ER if you experience any problems ITEMS TO FOLLOWUP ON ON OUTPATIENT: 1. Follow-up with PCP in one week. 2. Continue drinking about 2-3 L of water per day, low-salt diet, avoid soda. DISCHARGE CONDITION: Stable. TIME SPENT ON DISCHARGE: Greater than 35 minutes. Vital Signs/I&Os Vital Signs Date Time Temp Pulse Resp B/P (MAP) Pulse Ox O2 Delivery O2 Flow Rate FiO2 02/25/21 10:00 97.8 80 18 148/70 (96) 97 Room Air I&O- Last 24 Hours up to 6 AM 02/25/21 06:00 Intake Total 2460 ml Output Total 3300 ml Balance -840 ml Laboratory Data Labs 24H Laboratory Tests 2 02/25/21 05:30: Immature Granulocyte % (Auto) 0.6, Neutrophils (%) (Auto) 74.1H, Lymphocytes (%) (Auto) 13.0L, Monocytes (%) (Auto) 9.3H, Eosinophils (%) (Auto) 2.5, Basophils (%) (Auto) 0.5, Neutrophils # (Auto) 7.6, Lymphocytes # (Auto) 1.3L, Monocytes # (Auto) 1.0H, Eosinophils # (Auto) 0.3, Basophils # (Auto) 0.1, Nucleated Red Blood Cells % (auto) 0.0, Anion Gap 5L, Glomerular Filtration Rate > 60.0, Calcium Level 8.4L, C-Reactive Protein, Quantitative 9.81H CBC/BMP Laboratory Tests 02/25/21 05:30 Microbiology Microbiology 02/23/21 Respiratory Virus Panel (PCR) (ZEFERINO) - Final, Complete 02/23/21 Urine Culture - Preliminary, Resulted E.coli Esbl Discharge Medications Scheduled Aspirin (Aspirin EC) 81 Mg Tablet.dr, 81 MG PO DAILY, (Reported) Calcium Citrate/Vitamin D2 (Jose A-Citrate Plus Vitamin D Tab) 1 Each Tablet, 1 TAB PO DAILY, (Reported) Cholecalciferol (Vitamin D3) (Vitamin D3) 1,000 Unit Tablet, 1,000 UNITS PO DAILY, (Reported) Cranberry (Cranberry) 400 Mg Capsule, 400 MG PO DAILY, (Reported) Folic Acid (Folic Acid) 1 Mg Tablet, 1 MG PO DAILY, (Reported) Indapamide (Indapamide) 2.5 Mg Tablet, 2.5 MG PO DAILY, (Reported) Methotrexate Sodium (Methotrexate) 2.5 Mg Tablet, 15 MG PO QWEEK, (Reported) Omeprazole (Omeprazole) 40 Mg Capsule.dr, 1 CAP PO DAILY Sulfamethoxazole/Trimethoprim (Bactrim Ds Tablet) 1 Each Tablet, 1 TAB PO BID Scheduled PRN Meloxicam (Meloxicam) 15 Mg Tablet, 7.5 MG PO DAILY PRN for PAIN, (Reported) Prednisone (Prednisone) 10 Mg Tablet, 20 MG PO DAILY PRN for flare up, (Repor annabelle) Allergies Coded Allergies: No Known Allergies (Unverified , 10/26/14) GME ATTESTATION GME ATTESTATION My faculty preceptor for this patient encounter was physically present during the encounter and was fully available. All aspects of the patient interview, examination, medical decision making process, and medical care plan development were reviewed and approved by the faculty preceptor. The faculty preceptor is aware and concurs with the plan as stated in the body of this note and will attest to such by his/her cosignature. ATTENDING NOTE I, Santhosh Lorenzo, have independently examined this patient and performed my own physical exam, as well as reviewed the documentation and edited where necessary. I have discussed in detail with the resident / student the findings and plan of treatment as documented by the resident / student and edited their note. I agree with their findings and treatment plan and have edited their documentation. I will continue to follow the patient during this hospital stay. time spent on discharge 35 minutes Blaine Carlos MD Feb 25, 2021 18:37 SANTHOSH LORENZO MD Feb 25, 2021 21:31
== END 2021-02-25 14:34 | disposition home or self-care (01) | DRG 690 ==
LOC: M ED 09:33 → M ED INP 13:14 → EEVIPCON 13:14 → ENRESERV 13:32 → M MSPAV 15:38
PROVIDERS: ADMIT Internal Medicine; ATTEND Internal Medicine
DX: N13.6 Pyonephrosis (principal); I10 Essential (primary) hypertension; I95.9 Hypotension, unspecified; E86.0 Dehydration; E87.6 Hypokalemia; K21.9 Gastro-esophageal reflux disease without esophagitis; M06.9 Rheumatoid arthritis, unspecified; Z79.899 Other long term (current) drug therapy; Z79.82 Long term (current) use of aspirin; Z87.891 Personal history of nicotine dependence

== ENCOUNTER → 2021-04-18 | Outpatient (CLI) | payer MEDICARE ==
[~2021-04-18] MED LIST changes: +ASPI81TA26 PO; +BACT800T5 PO; +CAL-TAB4 PO; +CRAN400C PO; +D31000TA2 PO; +LEVO500T3 PO; +OMEP40CA97 PO; +TROS20TA3 PO
== END ==
LOC: M LABSMTC 08:55
PROVIDERS: ATTEND Anesthesiology
DX: Z01.812 Encounter for preprocedural laboratory examination (principal); Z20.822 Contact with and (suspected) exposure to COVID-19

== ENCOUNTER 2021-04-23 08:33 | Day surgery (SDC) | payer MEDICARE ==
[~2021-04-23] VITALS: Ht 154.9 cm; Wt 74.8 kg
[~2021-04-23 08:33] MED LIST changes: +LR 1,000 ML IV ONE; +OMEP40CA4 PO; -OMEP40CA97 PO; +ceFAZolin SOD 2 GM in IV 1 EA IV ONE
[2021-04-23] MEDS ORDERED: ETOMIDATE INJ 20MG/10ML VIAL As Ordered ONE (10:23)
[2021-04-23] MEDS ORDERED: propofoL 200 MG/20 ML VIAL As Ordered ONE (10:23)
[2021-04-23] MEDS ORDERED: fentaNYL 100 MCG/2 ML INJECTION (J3010) As Ordered ONE (10:23)
[2021-04-23] MEDS ORDERED: MIDAZOLAM INJ 2MG/2ML VIAL (J2250 PER 1MG) As Ordered ONE (10:23)
[2021-04-23] MEDS ORDERED: OXYC1TAB23 PO (10:34)
[2021-04-23] MEDS ORDERED: FLOM0.4C39 PO (10:34)
[2021-04-23] MEDS ORDERED: PERCOCET 5MG/325MG TAB PO PRN (11:10)
--- NOTE | 2021-04-23 11:25 | RO ---
OPERATIVE NOTE DATE OF OPERATION: 04/23/2021 PREOPERATIVE DIAGNOSIS: Right kidney stone. POSTOPERATIVE DIAGNOSIS: Right kidney stone. PROCEDURE: Right extracorporeal shock wave lithotripsy. SURGEON: Rome Cavazos MD TOOL AND CUTTER GRINDER: None. ANESTHESIA: MAC. OPERATIVE INDICATIONS: This is a 76-year-old female who was found to have a lower pole non-obstructing 1 cm right-sided kidney stone. She was brought to the operating room today for treatment. DESCRIPTION OF PROCEDURE: The patient was brought to the operating room and MAC anesthesia was administered. Prophylactic antibiotics were infused. She was placed in supine position in preparation of right-sided extracorporeal shock wave lithotripsy. Fluoroscopy was utilized to monitor stone position and fragmentation throughout the procedure. Shock waves were then delivered to the right-sided kidney stone ungated. There were no arrhythmias. The stone did appear to fragment well. After 2500 shocks the procedure was concluded. The patient was then awakened from anesthesia and transported to the recovery room in stable condition. ESTIMATED BLOOD LOSS: 0 mL COMPLICATIONS: None. SPECIMENS: None. PLAN: The patient will follow up in the urology clinic in approximately 3-4 weeks with imaging prior to assess for residual stone burden. RUBIO
[2021-04-23 11:50] VITALS: BP 157/67
--- NOTE | 2021-04-26 08:00 | REP ---
INDICATION: KUB BEFORE SDC COMPARISON: None. TECHNIQUE: Supine view of the abdomen and pelvis. FINDINGS: Evaluation of the urinary tract system is significantly limited by technique and bowel gas pattern including significant fecal stasis. Grouping of right intrarenal calculi measuring roughly 7 mm is suggested. Bowel gas pattern suggests moderate fecal stasis/constipation. Skeletal structures demonstrate congenital and age-related changes. IMPRESSION: 1. Limited examination with at least right renal calculi noted. 2. Moderate fecal stasis. <Electronically signed by Seamus Haskins > 04/26/21 [id number]
== END 2021-04-23 11:52 | disposition home or self-care (01) ==
LOC: M RAD 08:33 → M SDC 08:33 → M RAD 11:52
PROVIDERS: ATTEND Urology
DX: N20.0 Calculus of kidney (principal); Z79.82 Long term (current) use of aspirin; Z79.899 Other long term (current) drug therapy
CPT/HCPCS: 50590; 74018; J0690; J2250; J3010

== ENCOUNTER → 2021-05-13 | Outpatient (CLI) | payer MEDICARE ==
[~2021-05-13] MED LIST changes: +FLOM0.4C39 PO; -LR 1,000 ML IV ONE; +OXYC1TAB23 PO; -ceFAZolin SOD 2 GM in IV 1 EA IV ONE
--- NOTE | 2021-05-13 12:08 | REP ---
INDICATION: KIDNEY STONE COMPARISON: 04/23/2021 TECHNIQUE: Supine view of the abdomen and pelvis. FINDINGS: Evaluation is limited by overlying bowel gas and significant fecal stasis. Right upper lobe calcifications may represent either gallstones or renal stones. Skeletal structures demonstrate age-related degenerative changes. IMPRESSION: Cannot differentiate between gallstones and or possible renal calculi in the right upper quadrant. <Electronically signed by Seamus Haskins > 05/13/21 [id number]
== END ==
LOC: M WUC 11:40
PROVIDERS: ATTEND Nurse Practitioner Women's Health
DX: N20.0 Calculus of kidney (principal)

== ENCOUNTER → 2021-05-14 | Outpatient (REF) | payer MEDICARE ==
[~2021-05-14] MED LIST changes: -LEVO500T3 PO; +LEVO500T4 PO; +TUME1CAP PO
[2021-05-14 14:07] LABS: APPEARANCE, URINE CLEAR (CLEAR); BACTERIA, URINE AUTO 2+ (NEGATIVE); BILIRUBIN, URINE AUTO NEGATIVE (NEGATIVE); BLOOD, URINE BLOOD 1+ (NEGATIVE); COLOR, URINE YELLOW (YELLOW); GLUCOSE, URINE (UA) AUTO NEGATIVE (NEGATIVE); KETONE, URINE AUTO NEGATIVE (NEGATIVE); LEUKOCYTE ESTERASE, URINE AUTO 1+ (NEGATIVE); MUCUS, URINE SMALL (NEGATIVE); NITRITE, URINE AUTO NEGATIVE (NEGATIVE); PROTEIN, URINE AUTO NEGATIVE (NEGATIVE); RBC, URINE AUTO 2 /HPF (0-3); SPECIFIC GRAVITY URINE AUTO 1.011 (1.002-1.035); SQUAMOUS EPITHELIAL CELL UR AU 0 /HPF (0-6); UROBILINOGEN, URINE AUTO 0.2 mg/dL (0.0-2.0); WBC, URINE AUTO 5 /HPF (0-3)
[2021-05-29 23:08] LABS: Ca Ox Monohydrate 10 % (.)
== END ==
LOC: M SMT 12:52
PROVIDERS: ATTEND Nurse Practitioner Women's Health
DX: N20.0 Calculus of kidney (principal); Z87.440 Personal history of urinary (tract) infections

== ENCOUNTER 2021-06-05 14:14 | Outpatient (CLI) | payer MEDICARE ==
[~2021-06-05] VITALS: Ht 154.9 cm; Wt 76.3 kg
[~2021-06-05 14:14] MED LIST changes: +LEVO500T3 PO; -LEVO500T4 PO; -TUME1CAP PO
[2021-06-05 14:15] VITALS: BP 156/70
[2021-06-05] MEDS ORDERED: ZOLEDRONIC ACID 5 MG in IV 1 EA IV ONE (14:30)
[2021-06-05] MEDS ORDERED: TUME1CAP PO (14:39)
[2021-06-05 15:00] VITALS: BP 135/65
== END 2021-06-05 15:15 | disposition home or self-care (01) ==
LOC: M INFU 14:14
PROVIDERS: ATTEND Internal Medicine Endocrinology, Diabetes & Metabolism
DX: M81.0 Age-related osteoporosis without current pathological fracture (principal)
CPT/HCPCS: 96365; J3489

== ENCOUNTER → 2023-01-14 | Outpatient (CLI) | payer MEDICARE ==
[~2023-01-14] MED LIST changes: +D-50TAB PO; -D31000TA2 PO; +FLUTISP; +LEVO1TAB39 PO; -LEVO500T3 PO; +NITR50CA34 PO; +OMEP40CA5 PO; +TACR0.1O TOP; +TEMO0.0517 TOP; +TUME1CAP PO; +VITA100093 PO
== END ==
LOC: M LABSMTC 08:31
PROVIDERS: ATTEND Anesthesiology
DX: Z01.812 Encounter for preprocedural laboratory examination (principal); Z20.822 Contact with and (suspected) exposure to COVID-19

== ENCOUNTER 2023-01-19 11:12 | Day surgery (SDC) | payer MEDICARE ==
[~2023-01-19] VITALS: Ht 154.9 cm; Wt 59.9 kg
[~2023-01-19 11:12] MED LIST changes: +ceFAZolin SOD 2 GM in IV 1 EA IV ONE
[2023-01-19 12:00] LABS: HEMATOCRIT 44.5 % (36.0-47.0); HEMOGLOBIN 14.5 g/dl (12.0-15.5); MEAN CORPUSCULAR HGB CONC 32.6 g/dl (32.0-36.5); MEAN CORPUSCULAR VOLUME 95.3 fl (80.0-96.0); PLATELET COUNT, AUTOMATED 286 10^3/uL (150-450); RED BLOOD COUNT 4.67 10^6/uL (4.00-5.40); WHITE BLOOD COUNT 6.2 10^3/uL (4.0-10.0)
[2023-01-19] MEDS ORDERED: PERC5TAB12 PO (12:00)
[2023-01-19] MEDS ORDERED: LR 1,000 ML IV SCH (12:00)
[2023-01-19 12:18] LABS: BLOOD UREA NITROGEN 13 MG/DL (9-23); CALCIUM LEVEL 9.8 MG/DL (8.3-10.6); CARBON DIOXIDE LEVEL 32 MMOL/L (20-31); CHLORIDE LEVEL 102 MMOL/L (98-107); GLOMERULAR FILTRATION RATE > 60.0 (>39); GLUCOSE, FASTING 92 MG/DL (74-106); POTASSIUM SERUM 3.7 MMOL/L (3.5-5.1); SODIUM LEVEL 140 MMOL/L (136-145)
[2023-01-19] MEDS ORDERED: ONDANSETRON 4MG 2ML VIAL As Ordered ONE (13:04)
[2023-01-19] MEDS ORDERED: propofoL 200 MG/20 ML VIAL As Ordered ONE (13:04)
[2023-01-19] MEDS ORDERED: fentaNYL 100 MCG/2 ML INJECTION As Ordered ONE (13:04)
[2023-01-19] MEDS ORDERED: MIDAZOLAM INJ 2MG/2ML VIAL As Ordered ONE (13:04)
[2023-01-19] MEDS ORDERED: LIDOCAINE 2% 100MG/5ML SDV (FOR ANES.) As Ordered ONE (13:04)
[2023-01-19] MEDS ORDERED: ROCURONIUM BROMIDE 50MG/5ML VIAL As Ordered ONE (13:04)
[2023-01-19] MEDS ORDERED: VASOPRESSIN INJ 20UNITS/ML 1ML VIAL As Ordered ONE (14:03)
[2023-01-19] MEDS ORDERED: ACETAMINOPHEN 1000MG 100ML IV BAG As Ordered ONE (14:32)
[2023-01-19] MEDS ORDERED: KETOROLAC 60MG 2ML VIAL As Ordered ONE (14:37)
[2023-01-19] MEDS ORDERED: SUGAMMADEX SODIUM 500 MG/5 ML VIAL (BRIDION) As Ordered ONE (14:37)
[2023-01-19] MEDS ORDERED: ePHEDrine SULFATE 25 MG/5 ML(5MG/ML) SYRINGE As Ordered ONE (15:30)
[2023-01-19] MEDS ORDERED: PHENYLephrine 500MCG 5ML (100MCG/ML) SYRINGE As Ordered ONE (15:30)
[2023-01-19] MEDS ORDERED: ESTROGENS VAGINAL CREAM 30GM As Ordered ONE (15:31)
[2023-01-19] MEDS ORDERED: ONDANSETRON 4MG 2ML VIAL IV PRN (15:35)
[2023-01-19] MEDS ORDERED: MORPHINE 2 MG/ML 1ML VIAL IV PRN (15:35)
[2023-01-19] MEDS: fentaNYL 100 MCG/2 ML INJECTION IV PRN ×4 (16:06→16:39)
[2023-01-19] MEDS: oxyCODONE 5MG TAB PO PRN ×2 (16:11→16:54)
[2023-01-19 18:00] VITALS: BP 143/63
== END 2023-01-19 18:05 | disposition home or self-care (01) ==
LOC: M SDC 11:12
PROVIDERS: ATTEND Obstetrics & Gynecology
DX: N81.4 Uterovaginal prolapse, unspecified (principal); N95.0 Postmenopausal bleeding; N81.10 Cystocele, unspecified; K21.9 Gastro-esophageal reflux disease without esophagitis; M06.9 Rheumatoid arthritis, unspecified; M81.0 Age-related osteoporosis without current pathological fracture; Z87.891 Personal history of nicotine dependence; Z79.82 Long term (current) use of aspirin; Z79.899 Other long term (current) drug therapy
CPT/HCPCS: 36415; 57240; 58262; 80048; 85027; 86850; 86900; 86901; 88302; 88307; J0690; J1100; J2250; J2370; J2405; J3010

== ENCOUNTER → 2023-03-30 | Outpatient (CLI) | payer MEDICARE ==
[~2023-03-30] MED LIST changes: +FLUT50SP17; -FLUTISP; +PERC5TAB12 PO; -ceFAZolin SOD 2 GM in IV 1 EA IV ONE
== END ==
LOC: M RAD 12:24
PROVIDERS: ATTEND Specialist
DX: Z87.442 Personal history of urinary calculi (principal)

== ENCOUNTER 2023-05-05 14:52 | Outpatient (CLI) | payer MEDICARE ==
[2023-05-05 15:00] VITALS: BP 137/76; O2SAT 99
[2023-05-05] MEDS ORDERED: ZOLEDRONIC ACID 5 MG in IV 1 EA IV ONE ×4 (15:30)
[2023-05-05 15:39] VITALS: BP 153/71; O2SAT 100
== END 2023-05-05 15:40 | disposition home or self-care (01) ==
LOC: M INFU 14:52
PROVIDERS: ATTEND Internal Medicine Endocrinology, Diabetes & Metabolism
DX: M81.0 Age-related osteoporosis without current pathological fracture (principal)
CPT/HCPCS: 96365; J3489

== ENCOUNTER → 2024-06-26 | Outpatient (CLI) | payer MEDICARE ==
[~2024-06-26] MED LIST changes: -CRAN400C PO; +CRANBERRY400 MG PO; -FLUT50SP17; +FLUTISP; +INDA2.5T2 PO; -INDA25TAB PO
== END ==
LOC: M SOG 07:55
PROVIDERS: ATTEND Physician Assistant
DX: M25.512 Pain in left shoulder (principal); M85.812 Other specified disorders of bone density and structure, left shoulder; M19.012 Primary osteoarthritis, left shoulder; M79.89 Other specified soft tissue disorders

== ENCOUNTER → 2024-09-27 | Outpatient (CLI) | payer MEDICARE | LOC: M SOG 07:52 | PROVIDERS: ATTEND Physician Assistant | DX: M17.12 Unilateral primary osteoarthritis, left knee (principal) ==

== ENCOUNTER → 2024-10-29 | Outpatient (CLI) | payer MEDICARE | LOC: M RAD 13:07 | PROVIDERS: ATTEND Physician Assistant | DX: M71.22 Synovial cyst of popliteal space [Baker], left knee (principal); M25.462 Effusion, left knee; M23.322 Other meniscus derangements, posterior horn of medial meniscus, left knee; M94.262 Chondromalacia, left knee ==

== ENCOUNTER → 2025-01-25 | Outpatient (CLI) | payer MEDICARE ==
[~2025-01-25] VITALS: Ht 152.4 cm; Wt 64.5 kg
[2025-01-25 12:30] VITALS: BP 151/69; O2SAT 98
[2025-01-25] MEDS: ZOLEDRONIC ACID 5 MG in IV 1 EA IV ONE (12:37)
[2025-01-25 13:09] VITALS: BP 148/70; O2SAT 99
== END ==
LOC: M INFU 11:57
PROVIDERS: ATTEND Nurse Practitioner Family
DX: M81.0 Age-related osteoporosis without current pathological fracture (principal)
CPT/HCPCS: 96365; J3489

== ENCOUNTER 2025-03-05 11:32 | Emergency (ER) | payer MEDICARE ==
[~2025-03-05] VITALS: Ht 154.9 cm; Wt 66.4 kg
[~2025-03-05 11:32] MED LIST changes: -FLOM0.4C39 PO; +TAMS-18 PO
[2025-03-05 12:21] LABS: BASO # 0.1 10^3/uL (0.0-0.2); BASO % 0.9 % (0.0-1.0); EOS # 0.1 10^3/uL (0.0-0.5); EOS % 1.1 % (0.0-3.0); HEMATOCRIT 38.8 % (36.0-47.0); HEMOGLOBIN 12.7 g/dl (12.0-15.5); LYMPH # 0.8 10^3/uL (1.5-5.0); MEAN CORPUSCULAR HEMOGLOBIN 31.3 pg (27.0-33.0); MEAN CORPUSCULAR HGB CONC 32.7 g/dl (32.0-36.5); MEAN CORPUSCULAR VOLUME 95.6 fl (80.0-96.0); MONO # 0.2 10^3/uL (0.0-0.8); MONO % 4.3 % (2.0-8.0); NEUTROPHILS # 4.5 10^3/uL (1.5-8.5); NEUTROPHILS % 79.2 % (36.0-66.0); PLATELET COUNT, AUTOMATED 248 10^3/uL (150-450); RED BLOOD COUNT 4.06 10^6/uL (4.00-5.40); WHITE BLOOD COUNT 5.6 10^3/uL (4.0-10.0)
[2025-03-05 12:50] LABS: BLOOD UREA NITROGEN 18 MG/DL (9-23); CARBON DIOXIDE LEVEL 28 MMOL/L (20-31); CHLORIDE LEVEL 105 MMOL/L (98-107); CK-MB VALUE MASS < 1.0 NG/ML (<3.6); CPK CREATINE PHOSPHOKINASE 62 U/L (34-145); CREATININE FOR GFR 0.49 MG/DL (0.55-1.30); GLOMERULAR FILTRATION RATE > 90.0 (>32); GLUCOSE, FASTING 99 MG/DL (74-106); MB/CK RELATIVE INDEX 1.61 (< OR =4); POTASSIUM SERUM 4.3 MMOL/L (3.5-5.1); SODIUM LEVEL 142 MMOL/L (136-145)
[2025-03-05 13:27] LABS: CK-MB VALUE MASS 1.1 NG/ML (<3.6); MB/CK RELATIVE INDEX 1.71 (< OR =4)
[2025-03-05] MEDS: methylPREDNISolone 125 MG/2 ML VIAL IV ONE (13:48)
[2025-03-05 14:00] VITALS: BP 165/75; TEMP 98.8; O2SAT 97
[2025-03-05] MEDS ORDERED: PRED10TA2 PO (14:02)
[2025-03-13] MEDS ORDERED: AUGM500T34 PO (07:41)
[2025-04-10] MEDS ORDERED: ESTR10TA PO (07:50)
[2025-04-10] MEDS ORDERED: BUSP5TA PO (07:50)
[2025-04-10] MEDS ORDERED: METO1TAB87 PO (07:50)
[2025-04-10] MEDS ORDERED: FURO20TA2 PO (07:50)
[2025-04-10] MEDS ORDERED: JARD1TAB PO (07:50)
[2025-04-27] MEDS ORDERED: D200CAP2 PO (18:27)
[2025-04-27] MEDS ORDERED: TAMS-18 PO (18:29)
[2025-04-27] MEDS ORDERED: TURM500C PO (18:29)
[2025-04-27] MEDS ORDERED: ESTR1CRE VA (18:29)
[2025-04-27] MEDS ORDERED: [UNRECOGNIZED DRUG - CODE] VA (20:42)
[2025-04-29] MEDS ORDERED: FLUC-1 PO (09:43)
[2025-04-29] MEDS ORDERED: AZO-95TA3 PO (09:46)
[2025-05-15] MEDS ORDERED: NITR100C2 PO (07:55)
[2025-05-15] MEDS ORDERED: PRED5PAK PO (13:15)
[2025-05-15] MEDS ORDERED: CALCCAP4 PO (13:15)
== END 2025-03-05 14:19 | disposition home or self-care (01) ==
LOC: EDBD 11:32 → M ED 11:32
DX: M54.6 Pain in thoracic spine (principal); K21.9 Gastro-esophageal reflux disease without esophagitis; Z87.442 Personal history of urinary calculi; Z79.82 Long term (current) use of aspirin; Z79.52 Long term (current) use of systemic steroids; Z79.899 Other long term (current) drug therapy
CPT/HCPCS: 71045; 80048; 82550; 82553; 84484; 85025; 93005; 93041; 94760; 96374; 99285; J2919

== ENCOUNTER 2025-03-10 14:17 | Emergency (ER) | payer MEDICARE ==
[~2025-03-10] VITALS: Ht 154.9 cm; Wt 66.9 kg
[2025-03-10 14:58] LABS: KETONE, URINE AUTO RFX 1+ mg/dL (NEGATIVE); MUCUS, URINE RFX SMALL (NEGATIVE); NITRITE, URINE AUTO RFX NEGATIVE (NEGATIVE); RBC, URINE AUTO RFX 3 /HPF (0-3); SQUAM EPITHELIAL CELL UR AURFX 1 /HPF (0-6)
[2025-03-10 15:01] LABS: LEUKOCYTE ESTERASE UR AUTO RFX 1+ (NEGATIVE); WBC, URINE AUTO RFX 20 /HPF (0-3)
[2025-03-10 15:24] LABS: BASO % 0.1 % (0.0-1.0); HEMATOCRIT 37.9 % (36.0-47.0); HEMOGLOBIN 12.5 g/dl (12.0-15.5); LYMPH # 0.2 10^3/uL (1.5-5.0); MEAN CORPUSCULAR HEMOGLOBIN 31.6 pg (27.0-33.0); MEAN CORPUSCULAR VOLUME 95.9 fl (80.0-96.0); MONO # 0.1 10^3/uL (0.0-0.8); MONO % 0.4 % (2.0-8.0); NEUTROPHILS # 11.4 10^3/uL (1.5-8.5); NEUTROPHILS % 97.2 % (36.0-66.0); PLATELET COUNT, AUTOMATED 246 10^3/uL (150-450); RED BLOOD COUNT 3.95 10^6/uL (4.00-5.40); WHITE BLOOD COUNT 11.7 10^3/uL (4.0-10.0)
[2025-03-10 16:05] LABS: ALBUMIN 3.9 G/DL (3.2-5.2); BILIRUBIN,DIRECT 0.1 MG/DL (<0.4); BILIRUBIN,TOTAL 0.5 MG/DL (0.3-1.2); CALCIUM LEVEL 8.9 MG/DL (8.3-10.6); CREATININE FOR GFR 0.62 MG/DL (0.55-1.30); TOTAL PROTEIN 6.2 G/DL (5.7-8.2)
[2025-03-10] MEDS: NS 500 ML IV ONE (17:18)
[2025-03-10] MEDS: ONDANSETRON 4MG 2ML VIAL IV ONE ×2 (17:18→19:07)
[2025-03-10] MEDS: KETOROLAC 30 MG/ML 1ML VIAL IV ONE (17:18)
[2025-03-10] MEDS: MORPHINE 4 MG/ML 1ML VIAL IV ONE (18:34)
[2025-03-10] MEDS ORDERED: PERC5TAB12 PO (20:40)
[2025-03-10] MEDS ORDERED: ONDA-282 PO (20:41)
[2025-03-10] MEDS ORDERED: TAMS-18 PO (20:42)
[2025-03-10] MEDS ORDERED: CEFD1CAP9 PO (20:43)
[2025-03-10] MEDS: TAMSULOSIN 0.4 MG CAP PO ONE (20:54)
[2025-03-10] MEDS: CEFDINIR 300 MG CAP (OMNICEF) PO ONE (20:54)
[2025-03-10] MEDS: OXYCODONE/APAP 5MG/325MG(HOME DOSE PACK) PO ONE (20:55)
[2025-03-10 21:01] VITALS: BP 108/59; TEMP 98.4; O2SAT 95
[2025-03-13] MEDS ORDERED: AUGM500T34 PO (07:41)
== END 2025-03-10 21:20 | disposition home or self-care (01) ==
LOC: M ED 14:17 → UNDOADMIN 03-12 00:47 → M ICU 03-12 00:47
DX: N20.1 Calculus of ureter (principal); K21.9 Gastro-esophageal reflux disease without esophagitis; Z79.1 Long term (current) use of non-steroidal anti-inflammatories (NSAID); Z79.2 Long term (current) use of antibiotics; Z79.52 Long term (current) use of systemic steroids; Z79.899 Other long term (current) drug therapy

== ENCOUNTER 2025-03-12 02:04 | Inpatient (IN) | payer MEDICARE ==
[2025-03-12] VITALS (79 sets, daily range): BP systolic 68–126; BP diastolic 37–78; TEMP 97–98.8; O2SAT 87–100
[~2025-03-12] VITALS: Ht 154.9 cm; Wt 64.4 kg
[~2025-03-12 02:04] MED LIST changes: +CEFD1CAP9 PO; +ONDA-282 PO
[2025-03-12] MEDS ORDERED: MOM 30ML SUSPENSION UDC PO PRN (02:50)
[2025-03-12] MEDS ORDERED: MAALOX 30 ML SUSP *UDC PO PRN (02:50)
[2025-03-12] MEDS: PANTOPRAZOLE 40MG VIAL IV ONE (03:17)
[2025-03-12] MEDS: NOREPINEPHRINE 4MG IN D5 250ML 4 MG in IV 1 EA IV SCH (03:18)
[2025-03-12] MEDS ORDERED: HOME MED LIST COMPLETE! XX SCH (03:20)
[2025-03-12] MEDS ORDERED: TAMS1CAP17 PO (03:20)
[2025-03-12] MEDS ORDERED: MELO7.5T35 PO (03:20)
[2025-03-12] MEDS ORDERED: CEFD1CAP9 PO (03:20)
[2025-03-12] MEDS ORDERED: OXYC1TAB23 PO (03:20)
[2025-03-12] MEDS ORDERED: PRED10TA2 PO (03:20)
[2025-03-12] MEDS ORDERED: TROS20TA3 PO (03:20)
[2025-03-12] MEDS ORDERED: OMEP40CA5 PO (03:20)
[2025-03-12] MEDS ORDERED: PRED5TA PO (03:20)
[2025-03-12] MEDS ORDERED: ONDA-282 PO (03:20)
[2025-03-12 03:49] LABS: VENOUS BASE EXCESS -7.6 (-2.0-2.0); VENOUS HCO3 14.6 MMOL/L (23.0-27.0); VENOUS O2 SATURATION 99.3 % (60.0-80.0); VENOUS PARTIAL PRESSURE CO2 22.2 mmHg (38.0-50.0); VENOUS PARTIAL PRESSURE O2 223.6 mmHg (30.0-50.0); VENOUS PH 7.436 UNITS (7.330-7.430); VENOUS STANDARD HCO3 18.4 MMOL/L; VENOUS TOTAL CO2 15.3 MMOL/L (24.0-28.0)
[2025-03-12 03:52] LABS: HEMATOCRIT 34.9 % (36.0-47.0); HEMOGLOBIN 11.3 g/dl (12.0-15.5); MEAN CORPUSCULAR HEMOGLOBIN 31.7 pg (27.0-33.0); MEAN CORPUSCULAR HGB CONC 32.4 g/dl (32.0-36.5); MEAN CORPUSCULAR VOLUME 97.8 fl (80.0-96.0); RED BLOOD COUNT 3.57 10^6/uL (4.00-5.40); WHITE BLOOD COUNT 9.8 10^3/uL (4.0-10.0)
[2025-03-12] MEDS: NS (Normal Saline) 0.9% 1,000 ML IV ONE ×2 (03:53→08:54)
[2025-03-12] MEDS: IPRATROPIUM 0.5MG/ALBUTEROL 2.5MG INH SOL UD 3ML NEB SCH (03:54)
[2025-03-12 03:59] LABS: PLATELET COUNT, AUTOMATED 75 10^3/uL (150-450)
[2025-03-12] MEDS: LR 1,000 ML IV ONE (04:07)
[2025-03-12 04:34] LABS: APPEARANCE, URINE CLEAR (CLEAR); BACTERIA, URINE AUTO 1+ (NEGATIVE); BILIRUBIN, URINE AUTO NEGATIVE (NEGATIVE); BLOOD, URINE BLOOD 2+ (NEGATIVE); COLOR, URINE YELLOW (YELLOW); GLUCOSE, URINE (UA) AUTO NEGATIVE (NEGATIVE); KETONE, URINE AUTO NEGATIVE (NEGATIVE); LEUKOCYTE ESTERASE, URINE AUTO NEGATIVE (NEGATIVE); MUCUS, URINE SMALL (NEGATIVE); NITRITE, URINE AUTO NEGATIVE (NEGATIVE); PROTEIN, URINE AUTO NEGATIVE (NEGATIVE); RBC, URINE AUTO 1 /HPF (0-3); SPECIFIC GRAVITY URINE AUTO 1.006 (1.002-1.035); SQUAMOUS EPITHELIAL CELL UR AU 1 /HPF (0-6); UROBILINOGEN, URINE AUTO 0.2 mg/dL (0.0-2.0); WBC, URINE AUTO 2 /HPF (0-3)
[2025-03-12] MEDS: ACETAMINOPHEN 325 MG TAB PO PRN (04:54)
[2025-03-12 05:02] LABS: PROCALCITONIN 34.04 ng/ml
[2025-03-12 05:05] LABS: ALBUMIN 2.4 G/DL (3.2-5.2); BILIRUBIN,TOTAL 0.5 MG/DL (0.3-1.2); CALCIUM LEVEL 6.4 MG/DL (8.3-10.6); CK-MB VALUE MASS 7.9 NG/ML (<3.6); CREATININE FOR GFR 1.44 MG/DL (0.55-1.30); GLOMERULAR FILTRATION RATE 36.8 (>32); MB/CK RELATIVE INDEX 5.6 (< OR =4); PHOSPHORUS LEVEL 3.8 MG/DL (2.4-5.1); POTASSIUM SERUM 3.6 MMOL/L (3.5-5.1); TOTAL PROTEIN 4.5 G/DL (5.7-8.2)
[2025-03-12] MEDS: PIPERACILLIN/TAZOBACTAM SOD 4.5 GM in DEXTROSE 5% (D5W) ADV/MINI-BAG 50 ML IV SCH (05:19)
[2025-03-12 05:35] LABS: ATYPICAL LYMPH 1 % (0-5); LYMPHOCYTES 1 % (16-44); METAMYELOCYTES 16 % (0-0); MONOCYTES 7 % (0-5); MYELOCYTES 2 % (0-0); NEUTROPHILS 55 % (28-66)
[2025-03-12 05:37] LABS: PLATELET ESTIMATE DECREASED (NORMAL)
[2025-03-12] MEDS: NS (Normal Saline) 0.9% 1,000 ML IV SCH (05:41)
[2025-03-12] MEDS ORDERED: MAG SULF 1GM/100ML (MAG RUN) 1 GM in IV 1 EA IV SCH (05:50)
[2025-03-12] MEDS ORDERED: HEPARIN SOD (PORCINE) 5000UNITS/ML 1ML VIAL/SYRINGE SQ SCH (06:05)
[2025-03-12] MEDS: MAG SULF 1GM/100ML (MAG RUN) 1 GM in IV 1 EA IV SCH ×2 (06:10→20:28)
[2025-03-12] MEDS ORDERED: IPRATROPIUM 0.5MG/ALBUTEROL 2.5MG INH SOL UD 3ML NEB PRN (07:45)
[2025-03-12] MEDS ORDERED: VANCOMYCIN HCL IV ONE (07:45)
[2025-03-12] MEDS ORDERED: FLUID PLACE HOLDER IV ONE (07:45)
[2025-03-12] MEDS: VASOPRESSIN IN 0.9 % NACL 20 UNIT in IV 1 EA IV SCH (08:53)
[2025-03-12] MEDS: HYDROCORTISONE 100MG/2ML VIAL IV SCH (08:54)
[2025-03-12] MEDS: PANTOPRAZOLE 40MG VIAL IV SCH (08:59)
[2025-03-12] MEDS ORDERED: LIDOCAINE 2% 100MG/5ML SDV (FOR ANES.) As Ordered ONE (08:59)
[2025-03-12] MEDS ORDERED: propofoL 200 MG/20 ML VIAL As Ordered ONE (08:59)
[2025-03-12] MEDS: MEROPENEM INJ 1 GM in IV 1 EA IV SCH ×2 (08:59→09:06)
[2025-03-12] MEDS ORDERED: ROCURONIUM BROMIDE 50MG/5ML VIAL As Ordered ONE (08:59)
[2025-03-12] MEDS ORDERED: fentaNYL 100 MCG/2 ML INJECTION As Ordered ONE (08:59)
[2025-03-12] MEDS: DOCUSATE SODIUM 100MG CAPSULE PO SCH (09:00)
[2025-03-12] MEDS ORDERED: ASPIRIN 81MG ENTERIC TABLET PO SCH (09:00)
[2025-03-12] MEDS: ATORVASTATIN 20 MG TAB PO SCH ×2 (09:00→15:38)
[2025-03-12] MEDS ORDERED: ETOMIDATE INJ 20MG/10ML VIAL As Ordered ONE (09:03)
[2025-03-12] MEDS ORDERED: ISOVUE-300 61% 100ML VIAL As Ordered ONE (09:47)
[2025-03-12] MEDS ORDERED: KETAMINE HCL 200MG/20ML VIAL As Ordered ONE (09:55)
[2025-03-12 09:56] LABS: ABG BASE EXCESS -11.4 (-2.0-2.0); ABG HCO3 14.2 MMOL/L (22.0-26.0); ABG O2 SATURATION 87.5 % (95.0-99.0); ABG PARTIAL PRESSURE CO2 31.5 mmHg (35.0-45.0); ABG PARTIAL PRESSURE O2 58.1 mmHg (75.0-100.0); ABG STANDARD HCO3 15.3 MMOL/L. (22.0-26.0); ABG TOTAL CO2 15.2 MMOL/L (23.0-31.0); ABG pH (ARTERIAL) 7.273 UNITS (7.350-7.450)
[2025-03-12] MEDS ORDERED: dexmedeTOMIDine (4MCG/ML)200MCG/50ML BTL (PRECEDEX) As Ordered ONE (09:56)
[2025-03-12] MEDS ORDERED: VANCOMYCIN HCL 750 MG, VIAL MATE ADAPTER 1 EACH in NS 250 ML IV SCH (10:00)
[2025-03-12] MEDS ORDERED: CEFEPIME HCL 1 GM in DEXTROSE 5% (D5W) ADV/MINI-BAG 50 ML IV SCH (11:00)
[2025-03-12 11:13] LABS: ABG BASE EXCESS -12.2 (-2.0-2.0); ABG HCO3 14.9 MMOL/L (22.0-26.0); ABG O2 SATURATION 91.9 % (95.0-99.0); ABG PARTIAL PRESSURE CO2 37.9 mmHg (35.0-45.0); ABG PARTIAL PRESSURE O2 73.5 mmHg (75.0-100.0); ABG STANDARD HCO3 14.8 MMOL/L. (22.0-26.0)
[2025-03-12 11:16] LABS: ABG pH (ARTERIAL) 7.211 UNITS (7.350-7.450)
[2025-03-12] MEDS: MIDAZOLAM INJ 2MG/2ML VIAL IV STA (11:20)
[2025-03-12] MEDS: ETOMIDATE INJ 20MG/10ML VIAL IV STA (11:20)
[2025-03-12] MEDS: SUCCINYLCHOLINE INJ 200MG/10ML VIAL IV STA (11:20)
[2025-03-12] MEDS ORDERED: MIDAZOLAM INJ 2MG/2ML VIAL As Ordered ONE (11:24)
[2025-03-12] MEDS ORDERED: ALBUTEROL SULFATE 2.5MG/0.5ML INH CONCENTRATE NEB SOLN NEB PRN (11:35)
[2025-03-12] MEDS ORDERED: FENTANYL DRIP LOCK BOX KEY 1 EACH XX PRN (11:35)
[2025-03-12 11:59] LABS: ABG BASE EXCESS -13.1 (-2.0-2.0); ABG HCO3 14.2 MMOL/L (22.0-26.0); ABG O2 SATURATION 94.2 % (95.0-99.0); ABG PARTIAL PRESSURE O2 84.6 mmHg (75.0-100.0); ABG STANDARD HCO3 14.2 MMOL/L. (22.0-26.0); ABG TOTAL CO2 15.4 MMOL/L (23.0-31.0)
[2025-03-12 12:02] LABS: ABG pH (ARTERIAL) 7.191 UNITS (7.350-7.450)
[2025-03-12] MEDS: DOBUTamine HCL 500,000 MCG in IV 1 EA IV SCH (12:07)
[2025-03-12] MEDS: MIDAZOLAM INJ 2MG/2ML VIAL IV PRN (12:32)
[2025-03-12] MEDS: VANCOMYCIN HCL 1,250 MG, VIAL MATE ADAPTER 1 EACH in NS 250 ML IV SCH (12:37)
[2025-03-12] MEDS: MIDAZOLAM 100MG/100ML-0.9%NACL 100 MG in IV 1 EA IV SCH (12:37)
[2025-03-12] MEDS ORDERED: fentaNYL 100 MCG/2 ML INJECTION IV PRN (12:55)
[2025-03-12 13:10] LABS: D-DIMER QUANT 9.07 ug/mL (<0.5); INR 1.48; PARTIAL THROMBOPLASTIN TIME 41.1 SECONDS (24.8-34.2); PROTHROMBIN TIME 18.2 SECONDS (12.5-14.5)
[2025-03-12 13:17] LABS: CREATININE FOR GFR 1.36 MG/DL (0.55-1.30); GLOMERULAR FILTRATION RATE 39.4 (>32); POTASSIUM SERUM 3.7 MMOL/L (3.5-5.1)
[2025-03-12 13:39] LABS: ABG BASE EXCESS -11.3 (-2.0-2.0); ABG HCO3 14.1 MMOL/L (22.0-26.0); ABG O2 SATURATION 99.2 % (95.0-99.0); ABG PARTIAL PRESSURE CO2 30.8 mmHg (35.0-45.0); ABG PARTIAL PRESSURE O2 224.3 mmHg (75.0-100.0); ABG STANDARD HCO3 15.6 MMOL/L. (22.0-26.0); ABG TOTAL CO2 15.1 MMOL/L (23.0-31.0)
[2025-03-12] MEDS: fentaNYL CITRATE/NaCl 1,000 MCG in IV 1 EA IV SCH (13:54)
[2025-03-12] MEDS: FUROSEMIDE injection 100 MG, VIAL 2 BAG 13MM ADAPTER 1 EACH in NS 100 ML IV SCH (14:33)
[2025-03-12] MEDS: ASPIRIN 81MG CHEW TABLET FT SCH (15:37)
[2025-03-12 18:07] LABS: ABG O2 SATURATION 96.1 % (95.0-99.0); ABG PARTIAL PRESSURE CO2 33.2 mmHg (35.0-45.0); ABG PARTIAL PRESSURE O2 85.5 mmHg (75.0-100.0); ABG pH (ARTERIAL) 7.327 UNITS (7.350-7.450)
[2025-03-12 18:47] LABS: ALBUMIN 2.2 G/DL (3.2-5.2); BILIRUBIN,TOTAL 0.6 MG/DL (0.3-1.2); CALCIUM LEVEL 6.4 MG/DL (8.3-10.6); CREATININE FOR GFR 1.27 MG/DL (0.55-1.30); GLOMERULAR FILTRATION RATE 42.8 (>32); MAGNESIUM LEVEL 1.5 MG/DL (1.8-2.4); POTASSIUM SERUM 3.2 MMOL/L (3.5-5.1); TOTAL PROTEIN 4.3 G/DL (5.7-8.2)
[2025-03-12] MEDS: KCL 20MEQ IN 100ML SWI (KRUN) 20 MEQ in IV 1 EA IV SCH (19:50)
[2025-03-13] MEDS ORDERED: AUGM500T34 PO (07:41)
== END 2025-03-12 22:02 | disposition short-term general hospital (02) | DRG 853 ==
LOC: M ED INP 02:14 → M ICU 02:17
PROVIDERS: ADMIT Student in an Organized Health Care Education/Training Program; ATTEND Internal Medicine Pulmonary Disease
PROC: 5A1945Z Respiratory Ventilation, 24-96 Consecutive Hours (ICD-10-PCS; 2025-03-12)
PROC: 06HM33Z Insertion of Infusion Device into Right Femoral Vein, Percutaneous Approach (ICD-10-PCS; 2025-03-12)
PROC: 04HK33Z Insertion of Infusion Device into Right Femoral Artery, Percutaneous Approach (ICD-10-PCS; 2025-03-12)
PROC: 0T768DZ Dilation of Right Ureter with Intraluminal Device, Via Natural or Artificial Opening Endoscopic (ICD-10-PCS; principal; 2025-03-12 09:15)
DX: A41.51 Sepsis due to Escherichia coli [E. coli] (principal); J18.9 Pneumonia, unspecified organism; R65.21 Severe sepsis with septic shock; J96.01 Acute respiratory failure with hypoxia; R57.0 Cardiogenic shock; I21.4 Non-ST elevation (NSTEMI) myocardial infarction; D65 Disseminated intravascular coagulation [defibrination syndrome]; N17.9 Acute kidney failure, unspecified; N13.6 Pyonephrosis; J81.1 Chronic pulmonary edema; N39.0 Urinary tract infection, site not specified; N20.1 Calculus of ureter; E87.20 Acidosis, unspecified; K57.90 Diverticulosis of intestine, part unspecified, without perforation or abscess without bleeding; M06.9 Rheumatoid arthritis, unspecified; K21.9 Gastro-esophageal reflux disease without esophagitis; F41.9 Anxiety disorder, unspecified; M81.0 Age-related osteoporosis without current pathological fracture; Z98.49 Cataract extraction status, unspecified eye; Z87.891 Personal history of nicotine dependence; Z79.899 Other long term (current) drug therapy; Z79.52 Long term (current) use of systemic steroids

== ENCOUNTER 2025-05-23 09:49 | Outpatient (CLI) | payer MEDICARE ==
[2025-05-23] MEDS: SODIUM CHLORIDE 0.9% INJ 10 ML SYR IV SCH (09:00)
[~2025-05-23 09:49] MED LIST changes: +SODIUM CHLORIDE 0.9% INJ 10 ML SYR IV PRN
[2025-05-23] MEDS: ERTAPENEM SODIUM 1 GM in NS MINI-BAG PLUS 50 ML IV ONE (12:11)
[2025-05-23 13:15] VITALS: BP 135/65; O2SAT 98
== END 2025-05-23 13:15 ==
LOC: M INFU 09:49
PROVIDERS: ATTEND Internal Medicine Infectious Disease
DX: N39.0 Urinary tract infection, site not specified (principal)
CPT/HCPCS: 36410; 96365; C1751; J1335

== ENCOUNTER → 2025-05-23 | Outpatient (CLI) | payer MEDICARE ==
[~2025-05-23] MED LIST changes: +AUGM500T34 PO; +AZO-95TA3 PO; +BUSP5TA PO; +CALCCAP4 PO; +D200CAP2 PO; +ESTR10TA PO; +ESTR1CRE VA; +FLUC-1 PO; +FURO20TA2 PO; +JARD1TAB PO; +MELO7.5T35 PO; +METO1TAB87 PO; +NITR100C2 PO; +PRED5PAK PO; +PRED5TA PO; +TAMS1CAP17 PO; +TURM500C PO; +[UNRECOGNIZED DRUG - CODE] VA
== END ==
LOC: M IRPRO 09:46
PROVIDERS: ATTEND Urology
DX: N39.0 Urinary tract infection, site not specified (principal)

== ENCOUNTER 2025-05-24 10:39 | Outpatient (CLI) | payer MEDICARE ==
[~2025-05-24 10:39] MED LIST changes: -SODIUM CHLORIDE 0.9% INJ 10 ML SYR IV PRN
[2025-05-24 10:50] VITALS: BP 147/69; O2SAT 97
[2025-05-24] MEDS: ERTAPENEM SODIUM 1 GM in NS MINI-BAG PLUS 50 ML IV ONE (10:59)
[2025-05-24 11:35] VITALS: BP 126/56; O2SAT 99
== END 2025-05-24 11:35 ==
LOC: M INFU 10:39
PROVIDERS: ATTEND Urology
DX: N39.0 Urinary tract infection, site not specified (principal)
CPT/HCPCS: 96365; J1335

== ENCOUNTER 2025-05-25 08:49 | Outpatient (CLI) | payer MEDICARE ==
[~2025-05-25] VITALS: Ht 149.9 cm; Wt 76.8 kg
[2025-05-25 08:55] VITALS: BP 155/70; O2SAT 99
[2025-05-25] MEDS: ERTAPENEM SODIUM 1 GM in NS MINI-BAG PLUS 50 ML IV ONE (09:01)
[2025-05-25 09:35] VITALS: BP 133/61; O2SAT 98
== END 2025-05-25 09:35 | disposition home or self-care (01) ==
LOC: M INFU 08:49
PROVIDERS: ATTEND Urology
DX: N39.0 Urinary tract infection, site not specified (principal)
CPT/HCPCS: 96365; J1335

== ENCOUNTER 2025-05-26 08:38 | Outpatient (CLI) | payer MEDICARE ==
[~2025-05-26] VITALS: Ht 149.9 cm; Wt 76.8 kg
[2025-05-26 08:45] VITALS: BP 134/65; O2SAT 96
[2025-05-26] MEDS: ERTAPENEM SODIUM 1 GM in NS MINI-BAG PLUS 50 ML IV SCH (08:51)
[2025-05-26 09:28] VITALS: BP 116/56; O2SAT 99
== END 2025-05-26 09:30 | disposition home or self-care (01) ==
LOC: M INFU 08:38
PROVIDERS: ATTEND Urology
DX: N39.0 Urinary tract infection, site not specified (principal)
CPT/HCPCS: 96365; J1335

== ENCOUNTER 2025-05-27 13:37 | Outpatient (CLI) | payer MEDICARE ==
[~2025-05-27] VITALS: Ht 154.9 cm; Wt 59.0 kg
[2025-05-27 13:50] VITALS: BP 130/70; O2SAT 97
[2025-05-27] MEDS: ERTAPENEM SODIUM 1 GM in NS MINI-BAG PLUS 50 ML IV ONE (14:09)
[2025-05-27 14:45] VITALS: BP 163/72; O2SAT 97
== END 2025-05-27 14:45 | disposition home or self-care (01) ==
LOC: M INFU 13:37
PROVIDERS: ATTEND Urology
DX: N39.0 Urinary tract infection, site not specified (principal)
CPT/HCPCS: 96365; J1335

== ENCOUNTER 2025-05-28 13:40 | Outpatient (CLI) | payer MEDICARE ==
[~2025-05-28] VITALS: Ht 149.9 cm; Wt 59.0 kg
[2025-05-28] MEDS: ERTAPENEM SODIUM 1 GM in NS MINI-BAG PLUS 50 ML IV ONE (13:46)
== END 2025-05-28 14:20 | disposition home or self-care (01) ==
LOC: M INFU 13:40
PROVIDERS: ATTEND Urology
DX: N39.0 Urinary tract infection, site not specified (principal)
CPT/HCPCS: 96365; J1335

== ENCOUNTER 2025-05-29 06:05 | Day surgery (SDC) | payer MEDICARE ==
[~2025-05-29] VITALS: Ht 154.9 cm; Wt 59.9 kg
[~2025-05-29 06:05] MED LIST changes: +ceFAZolin SOD 2 GM IV ONCE IV ONE
[2025-05-29] MEDS ORDERED: LIDOCAINE 2% 100 MG/5 ML SDV (FOR ANES.) As Ordered ONE (07:05)
[2025-05-29] MEDS ORDERED: dexAMETHasone 4 MG/ML 1 ML VIAL As Ordered ONE (07:10)
[2025-05-29] MEDS ORDERED: ACETAMINOPHEN 1000MG/100ML IV BAG As Ordered ONE (07:12)
[2025-05-29] MEDS ORDERED: ONDANSETRON 4MG 2ML VIAL As Ordered ONE (07:15)
[2025-05-29] MEDS: LR 1,000 ML IV SCH (07:20)
[2025-05-29] MEDS: ERTAPENEM SODIUM 1 GM in NS MINI-BAG PLUS 50 ML IV ONE (07:30)
[2025-05-29] MEDS ORDERED: ETOMIDATE 20 MG/10 ML VIAL As Ordered ONE (07:33)
[2025-05-29] MEDS ORDERED: PHENYLEPHRINE 10MG/ML 1ML VIAL As Ordered ONE (07:49)
[2025-05-29] MEDS ORDERED: PHENYLephrine 500MCG 5ML (100MCG/ML) SYRINGE As Ordered ONE (07:52)
[2025-05-29] MEDS ORDERED: HYDROCORTISONE 100 MG/2 ML VIAL As Ordered ONE (07:52)
[2025-05-29] MEDS: ISOVUE-300 61% 100 ML VIAL As Ordered ONE (08:11)
[2025-05-29] MEDS ORDERED: ONDANSETRON 4MG 2ML VIAL IV PRN (08:35)
[2025-05-29 09:57] VITALS: BP 156/70; TEMP 98.1; O2SAT 95
== END 2025-05-29 10:06 | disposition home or self-care (01) ==
LOC: M SDC 06:05
PROVIDERS: ATTEND Urology
DX: N13.2 Hydronephrosis with renal and ureteral calculous obstruction (principal); N32.81 Overactive bladder; I10 Essential (primary) hypertension; I25.2 Old myocardial infarction; M06.9 Rheumatoid arthritis, unspecified; Z79.52 Long term (current) use of systemic steroids; Z79.899 Other long term (current) drug therapy; Z79.82 Long term (current) use of aspirin; Z79.1 Long term (current) use of non-steroidal anti-inflammatories (NSAID); K21.9 Gastro-esophageal reflux disease without esophagitis; F41.9 Anxiety disorder, unspecified; F32.A Depression, unspecified; M85.80 Other specified disorders of bone density and structure, unspecified site; Z90.49 Acquired absence of other specified parts of digestive tract; Z90.710 Acquired absence of both cervix and uterus
CPT/HCPCS: 52356; 76000; 82365; C1769; C1894; C2617; J0131; J1100; J1335; J1720; J2371; J2405; J3010; Q9967

== ENCOUNTER 2025-05-30 14:20 | Outpatient (CLI) | payer MEDICARE | END 2025-05-30 14:45 | LOC: M INFU 14:20 | PROVIDERS: ATTEND Urology | DX: N39.0 Urinary tract infection, site not specified (principal); Z53.9 Procedure and treatment not carried out, unspecified reason ==

== ENCOUNTER → 2025-05-30 | Outpatient (CLI) | payer MEDICARE ==
[~2025-05-30] MED LIST changes: -ceFAZolin SOD 2 GM IV ONCE IV ONE
[2025-05-30 14:45] VITALS: BP 149/67; O2SAT 98
== END ==
LOC: M INFU 15:25
PROVIDERS: ATTEND Nurse Practitioner Family
DX: Z53.9 Procedure and treatment not carried out, unspecified reason (principal)